=== PATIENT | male | born 1950 | race Caucasian/White ===

== ENCOUNTER 2018-10-16 22:54 | Inpatient (IN) | payer BC, MEDICARE ==
[~2018-10-16 22:54] MED LIST: ISOVUE-370 76%-LOCM 1 ML ONE
[2018-10-16 23:10] LABS: #Monocytes 1.8 thou/uL (0.11-0.59); #Neutrophils 13.5 thou/uL (1.40-6.50); %Basophils 0.2 % (0.0-1.0); %Eosinophils 0.2 % (0.0-10.0); %Lymphocytes 6.3 % (21.0-51.0); %Monocytes 10.8 % (0.0-10.0); %Neutrophils 82.5 % (42.0-75.0); Hemoglobin 15.6 g/dL (14.0-18.0); Mean Corpuscular HGB CONC 31.7 g/dL (32.0-36.0); Mean Corpuscular Hemoglobin 30.8 pg (27.0-31.0); Mean Corpuscular Volume 97.3 fL (78.0-98.0); Mean Platelet Volume 8.4 fL (7.4-10.4); Platelet Count 212 thou/uL (130-400); RBC Distribution Width 12.3 % (11.5-14.5); Red Blood Cell (RBC) Count 5.07 mill/uL (4.70-6.10); White Blood Cell (WBC) Count 16.4 thou/uL (4.8-10.8)
[2018-10-16 23:36] LABS: CKMB 0.7 ng/mL (0-6.6)
--- NOTE | 2018-10-16 23:49 | RAD ---
ONE VIEW CHEST: 10/16/18 HISTORY: Difficulty walking around 3 this afternoon. Balance issues. Chest pain. COMPARISON: None. FINDINGS: Normal cardiac silhouette. Pulmonary vessels and hilum are normal. Right costophrenic angle is clear. Minimal blunting of the left costophrenic angle. There is obscuration of the left hemidiaphragm. Lef t lower lobe infiltrate cannot be excluded. No pneumothorax or osseous abnormalities. IMPRESSION: Left lower lobe infiltrate. POS: [facility]
[2018-10-17 00:09] LABS: Troponin I Less than 0.010 ng/mL (< 0.028)
[2018-10-17 00:13] LABS: Albumin 3.7 g/dL (3.4-4.8)
[2018-10-17 00:14] LABS: Chloride 108 mmol/L (98-107); Potassium 3.8 mmol/L (3.5-5.1); Sodium 138 mmol/L (136-145)
[2018-10-17 00:15] LABS: Globulin 3.3 g/dL (2.4-3.5); Glucose 118 mg/dL (80-115)
[2018-10-17 00:16] LABS: Carbon Dioxide 22 mmol/L (23-31)
[2018-10-17 00:17] LABS: Anion Gap 12 mmol/L (10-20); Bilirubin, Total 0.8 mg/dL (0.2-1.2)
[2018-10-17 00:18] LABS: Alkaline Phosphatase 115 U/L (40-150); Calc. Creatinine Clearance 0 mL/min (70-130); Estimated GFR-MDRD 77
[2018-10-17 00:19] LABS: BUN (Urea Nitrogen) 16 mg/dL (8.4-25.7)
[2018-10-17 00:20] LABS: AST (SGOT) 20 U/L (5-34)
[2018-10-17 00:21] LABS: ALT (SGPT) 28 U/L (8-55); CK (CPK) 42 U/L (30-200)
[2018-10-17 01:26] LABS: Bilirubin Negative (Negative); Blood, Urine Trace (Negative); Clarity CLEAR (Clear); Glucose, Urine (Dipstick) Negative (Negative); Leukocyte Moderate (Negative); Nitrite Negative (Negative); Protein, Urine (Dipstick) Trace mg/dL (Neg-Trace); Urobilinogen 0.2 mg/dL (0.2-1.0); pH, Urine 5.5 (5.0-9.0)
[2018-10-17 01:28] LABS: Bacteria/HPF None Seen HPF (None Seen); Pathc Cast-AUWi Flag 1.59 (0-2.49); Squamous Epithelial None Seen HPF (0-3)
[2018-10-17 01:37] LABS: Yeast-AUWi Flag 31.9 (0-25.0)
[2018-10-17 01:38] LABS: Specific Gravity, Urine Greater than 1.060 (1.002-1.036)
[2018-10-17 01:55] LABS: Crystals/HPF 1+ CA OXALATE HPF (Negative); Hyaline Casts/LPF NONE SEEN LPF (0-3 Hyaline); RBC/HPF 0-3 HPF (0-3); Yeast-All Forms None Seen HPF (None Seen)
[2018-10-17] MEDS ORDERED: Ondansetron ODT 4 MG TAB PO PRN (02:02)
[2018-10-17] MEDS ORDERED: Acetaminophen 325 MG TAB PO PRN (02:02)
[2018-10-17] MEDS ORDERED: Ondansetron PF 4 MG/2 ML Vial IVP PRN (02:02)
[2018-10-17 02:17] LABS: #Lymphocytes 1.4 thou/uL (1.20-3.40); #Monocytes 1.4 thou/uL (0.11-0.59); #Neutrophils 10.2 thou/uL (1.40-6.50); %Basophils 0.2 % (0.0-1.0); %Eosinophils 0.4 % (0.0-10.0); %Monocytes 10.4 % (0.0-10.0); %Neutrophils 78.1 % (42.0-75.0); Hemoglobin 14.6 g/dL (14.0-18.0); Mean Corpuscular HGB CONC 33.3 g/dL (32.0-36.0); Mean Corpuscular Hemoglobin 32.2 pg (27.0-31.0); Mean Corpuscular Volume 96.6 fL (78.0-98.0); Mean Platelet Volume 8.2 fL (7.4-10.4); Platelet Count 184 thou/uL (130-400); RBC Distribution Width 12.3 % (11.5-14.5); Red Blood Cell (RBC) Count 4.54 mill/uL (4.70-6.10); White Blood Cell (WBC) Count 13.1 thou/uL (4.8-10.8)
[2018-10-17 02:34] LABS: Troponin I Less than 0.010 ng/mL (< 0.028)
[2018-10-17 02:45] LABS: Anion Gap 15 mmol/L (10-20); BUN (Urea Nitrogen) 14 mg/dL (8.4-25.7); Calc. Creatinine Clearance 0 mL/min (70-130); Calcium 8.9 mg/dL (7.8-10.44); Carbon Dioxide 20 mmol/L (23-31); Chloride 108 mmol/L (98-107); Estimated GFR-MDRD 83; Glucose 134 mg/dL (80-115); Potassium 3.8 mmol/L (3.5-5.1); Sodium 139 mmol/L (136-145)
--- NOTE | 2018-10-17 03:03 | HP ---
CHIEF COMPLAINT: Left-sided weakness. HISTORY OF PRESENT ILLNESS: This is a 68-year-old male with past medical history of CVA in 2009 with no residual deficits, presented with left-sided weakness which started around 1500 hours. Per the p atient, he was at home in the afternoon, he started noticing that he was having left-sided weakness w hich progressively got worse; therefore, it prompted the patient to come to the emergency room to be evaluated. The patient states that he has experienced some weakness which is very similar to this in the past and during that time, patient was diagnosed with stroke. Patient states that he is mostly experiencing difficulty with ambulation and it progressively got worse that he was falling and having difficulty getting back up due to the left-sided weakness. Per patient, he has also been having inc reasing frequency and urgency with urination. At this point, patient denies any fever, chills, nause a, vomiting, abdominal pain, chest pain, palpitations, hematuria, hematochezia, melena, but endorses increasing frequency with urination and left-sided weakness. REVIEW OF SYSTEMS: Positive for increased urination and left-sided weakness, otherwise as documented in HPI. All other systems were reviewed and are negative. PAST MEDICAL HISTORY: CVA in 2009. FAMILY HISTORY: Reviewed and noncontributory to this visit. PAST SURGICAL HISTORY: Patient had oral surgery in the past. PSYCHIATRIC HISTORY: No previous psychiatric history. SOCIAL HISTORY: Patient states that he drinks one beer per month. Denies any illicit drug use. Den ies any smoking history. ALLERGIES: No known drug allergies. MEDICATIONS: Patient takes Aggrenox b.i.d. and patient takes Lipitor 40 mg. Patient takes fish oil 1000. Patient takes vitamin B complex. PHYSICAL EXAMINATION: VITAL SIGNS: Blood pressure is 137/73, pulse of 117, respiratory rate of 18, O2 sat of 96% on room a ir. GENERAL: Patient is awake, alert, oriented x3, not in acute distress. Patient is lying in bed comfo rtably, able to speak to me in full sentences. HEENT: Normocephalic, atraumatic. Pupils are equally round and reactive to light. Extraocular move ments are intact. No scleral icterus. No conjunctival pallor. Mucous membranes are moist. NECK: There is no JVD. Neck has full range of motion, supple. No tracheal deviation. Trachea is m idline. LUNGS: Patient does have some crackles in the left lower base, otherwise patient has clear to auscul tation bilaterally at the anterior lung jack. Patient has symmetric chest rise with inspiration an d expirations. CARDIOVASCULAR: Patient has positive S1, S2 tachycardic. No rubs, no gallops, no murmurs appreciate d. ABDOMEN: Soft, nontender, nondistended. Positive bowel sounds in all quadrants. No ecchymosis, no peritoneal signs. EXTREMITIES: Patient has 5/5 upper extremity strength, good pulses bilaterally and good sensation at the upper extremity and patient has 5/5 lower extremity strength, good sensation at the extremity bi laterally and good pulses at the dorsalis pedis bilaterally. NEUROLOGIC: Cranial nerves II-XII grossly intact. No neurologic deficits noted. SKIN: Warm, dry and intact. No rashes noted. DIAGNOSTIC DATA: EKG shows sinus tachycardia with nonspecific ST abnormalities. Patient's rate is 1 14. LABORATORY DATA: WBC 16.4, hemoglobin is 15.6, hematocrit is 49.3, MCV is 97.3, RDW is 12.3, platele t count is 212. Sodium is 138, potassium is 3.8, chloride is 108, carbon dioxide of 22, anion gap of 12, BUN is 16, creatinine is 0.96, GFR 77, glucose 118. Lipase is 27. Troponin is less than 0.010. Creatine kinase 42, alkaline phosphatase 115, AST is 20, ALT is . Urinalysis shows moderate l eukoesterase and negative for nitrite. IMAGIN. CT of the head preliminary read is negative. 2. Chest x-ray shows a second x-ray shows left lower lobe infiltrate. ASSESSMENT AND PLAN: 1. This is a 68-year-old male being admitted for left-sided weakness, likely due to transient ischem ic attack. At this point, we will rule out cerebrovascular accident. Patient's CT scan of the head has been negative so far. We are awaiting CT of the [place] angio with contrast and we will follow up on MRI and echo. We will consult Neurology. We will give the patient aspirin and atorvas tatin at this time. We will follow up on morning labs. 2. Sepsis secondary to urinary tract infection. At this point, we have given the patient Rocephin. Urinalysis is positive for leukocyte esterase. We will continue patient on gentle hydration and con tinue antibiotics. 3. Aspiration pneumonia. Patient does have a left lower lobe infiltrate. At this point, we will st art the patient on antibiotics. We are going to continue antibiotics for the patient. We will gloria nue IV fluids and we will monitor the patient closely. 4. History of cerebrovascular accident. At this point, patient does not seem to have any residual d eficits. We will continue patient on aspirin and atorvastatin. We will monitor the patient closely. 5. Deep venous thrombosis and gastrointestinal prophylaxis. This case has been dictated by Dr. Ramon Yusuf on patient, Gladys Pathak.
[2018-10-17] MEDS: Sodium Chloride 0.9% 1,000 ML IV SCH ×2 (03:58→16:12)
[2018-10-17] MEDS: Piperacillin/Tazobactam 3.375 GM in Sodium Chloride 0.9% 100 ML IVPB SCH ×4 (03:59→20:06)
[2018-10-17 05:00] VITALS: BMI 23.2
[2018-10-17 05:09] LABS: Troponin I Less than 0.010 ng/mL (< 0.028)
[2018-10-17 05:28] LABS: Folate (Folic Acid) 14.7 ng/mL (7.0-31.4)
--- NOTE | 2018-10-17 07:42 | CT ---
NONCONTRAST HEAD CT: HISTORY: Sudden onset left leg weakness since 1500 hours. COMPARISON: None. FINDINGS: Calvarium is intact. Adequate aeration of the sinuses and mastoid air cells. No parenchymal hemorrhage. No extraaxial hematoma. No midline shift. Basilar cisterns are patent. Age appropriate atrophy. Cortical whiteside-white matter differentiation is preserved, with the exception of the right occipital parietal region where there is evidence of remote insult. Confluent white ma tter hypodensities due to chronic small-vessel ischemic changes are noted. There is evidence of dany te lacunar infarcts involving the left lentiform nucleus as well as remote lacunar infarcts involving the left chavez radiata and left subinsular white matter. IMPRESSION: No acute intracranial process. Results of the study discussed with Dr. Avila 10/17/2018 at 12:29 a.m. CODE JOSE POS: [facility]
--- NOTE | 2018-10-17 08:06 | CT ---
CT ANGIOGRAM OF THE HEAD CT ANGIOGRAM OF THE HEAD: HISTORY: Acute onset left-sided weakness starting at 1500 hours today. Difficulty ambulating. COMPARISON: None. FINDINGS: Postcontrast head CT demonstrates preservation of cortical whiteside-white matter differentiation with the exception of the right occipital lobe. No pathologic enhancement of the brain parenchyma. Bilateral ocular lenses are appropriately located. Both globes are intact. Retrobulbar fat is prese rved. Symmetric attenuation of the optic nerves and ocular rectus muscles. Limited evaluation of th e anterior oral cavity due to dental amalgam artifact. Based on the sagittal images, midline fatty r aphae of the tongue is preserved. Epiglottis has a normal caliber. Preepiglottic fat is preserved. There is no prevertebral soft tissue swelling. Symmetric attenuation of the parotid and submandibular glands. Unremarkable thyroid gland. Symmetri c attenuation of the sternocleidomastoid muscles. No evidence of lymphadenopathy by size criteria. Cervical spine vertebral body height is maintained. No fracture. There are varying degrees of centr al canal stenosis and neural foraminal narrowing on the basis of degenerative change. Evaluation is limited by technique. No acute abnormality in the lung apices. Upper mediastinum is unremarkable. CT ANGIOGRAM OF THE NECK: Visualized aortic arch, subclavian artery are unremarkable. Bilateral cervical vertebral arteries are patent throughout their course of the neck. Right vertebra l artery is dominant. RIGHT CAROTID: The origin of the right carotid artery has appropriate enhancement and luminal diameter. Minimal ath erosclerosis of the right carotid bifurcation. There is mild stenosis of the right carotid bifurcati on. No evidence of high-grade stenosis based upon NASCET criteria. LEFT CAROTID: The left carotid artery origin has appropriate enhancement and luminal diameter. There is no signifi cant stenosis based upon NASCET criteria. Throughout the left carotid artery. CT ANGIOGRAM OF THE HEAD: Distal cervical and intracranial internal carotid arteries have appropriate enhancement and luminal d iameter. There is atherosclerotic disease without significant stenosis in bilateral cavernous segmen ts as well as paraclinoid segments. ANTERIOR CIRCULATION: There is symmetric enhancement and luminal diameter of the A1 and M1 segments. Proximal A2 segments and proximal MCA branches are symmetric. POSTERIOR CIRCULATION: Both PICA artery origins are unremarkable. Both vertebral arteries supply a normal-caliber basilar a rtery. The left and right P1 segments have symmetric enhancement and luminal diameter. IMPRESSION: 1. No evidence of significant stenosis of the cervical carotid arteries based upon NASCET criteria. 2. No evidence of significant stenosis or aneurysm at the level of the [place]. Results of the study discussed with Dr. Avila 10/17/2018 at 12:49 a.m. CODE JOSE POS: [facility]
[2018-10-17] MEDS ORDERED: Prevnar 13-Val Conj/PF 0.5 ML SYRINGE IM ONE (09:00)
[2018-10-17] MEDS: Famotidine/PF 20 mg/2ml Vial SLOW IVP SCH ×2 (09:19→20:06)
[2018-10-17] MEDS: Enoxaparin Sodium 40 MG/0.4 ML SYRINGE SC SCH (09:19)
[2018-10-17] MEDS: Famotidine 20 MG TAB PO SCH ×2 (09:19→20:07)
--- NOTE | 2018-10-17 11:23 | MRI ---
MRI OF THE JOSE WITHOUT CONTRAST: INDICATION: History of left-sided weakness mostly in the leg that started yesterday with a history of a fall. COMPARISON: Prior noncontrast CT of the brain dated 10/17/2018 at 12:25 a.m. FINDINGS: No restricted diffusion is seen to suggest the presence of acute infarction. There is severe chronic small-vessel white matter ischemic change with chronic-appearing lacunar infarctions involving the l eft globus pallidus and bilateral thalami. There is mild generalized cerebral and cerebellar atrophy . The septum pellucidum and third ventricle are midline. There appropriate flow voids within the ma michelle intracranial vessels. There is mild mucosal thickening within the maxillary sinuses and ethmoid air cells. The skull appears within normal limits. No definite acute intracranial hemorrhage is not ed. IMPRESSION: 1. No acute intracranial abnormality. 2. Severe chronic small vessel white matter ischemic change. POS: [facility]
[2018-10-17] MEDS ORDERED: Aggrenox 200-25mg CAP PO SCH (14:00)
--- NOTE | 2018-10-17 14:58 | PDOC.PN ---
- Subjective Encounter Start Date: 10/17/18 Encounter Start Time: 14:45 Subjective: nsg notes rev, quin ovn, no new c/o, overall feels better. and dtr and -: granddtr visiting at bedside. no SOB/ some hoarseness and occ dry cough -: no CP - Objective Resuscitation Status: Resuscitation Status FULL:Full Resuscitation Vital Signs & Weight: Vital Signs (12 hours) Temp Pulse Pulse Pulse Resp BP BP 10/17/18 12:00 98.7 F 100 20 10/17/18 10:55 106 H 117/71 10/17/18 10:00 103 H 99 122/67 130/70 10/17/18 08:45 98.7 F 99 18 10/17/18 03:05 99.3 F 109 H 18 BP Pulse Ox 10/17/18 12:00 117/71 96 10/17/18 10:55 10/17/18 10:00 10/17/18 08:45 101/60 93 L 10/17/18 03:05 111/74 96 Weight Weight 171 lb 7 oz I&O: 10/16/18 10/17/18 10/18/18 06:59 06:59 06:59 Intake Total 400 200 Output Total 100 Balance 300 200 Result Diagrams: 10/17/18 02:07 10/17/18 02:07 Phys Exam - Physical Examination Constitutional: NAD lying in hospital bed HEENT: PERRLA Respiratory: no wheezing, no rales, no rhonchi, clear to auscultation bilateral no conversational dyspnea Cardiovascular: RRR, no significant murmur, no rub Gastrointestinal: soft, positive bowel sounds Musculoskeletal: no edema Neurological: moves all 4 limbs Psychiatric: normal affect Dx/Plan - Plan * L sided weakness w/o evidence of new stroke * supportive mgmt with PT/ OT/ ST * continue home atorvastatin, aggrenox - d/w pt and his family * * LLL pna with sepsis * sepsis is improving * continue with abx pending cx * * concern for UTI on adm, pending Ucx as well * d/w pt and family if negative UCx, will de-escalate empiric abx from IV to PO , monitor for several hrs and d/c home * * diet: as per speech * activity: as wil - PT + OT + ST * dvt ppx Review of Systems - Medications/Allergies Allergies/Adverse Reactions: Allergies Allergy/AdvReac Type Severity Reaction Status Date / Time No Known Drug Allergies Allergy Verified 10/17/18 02:30 Medications: Current Medications Acetaminophen (Tylenol) 650 mg PO Q4H PRN PRN Reason: Headache/Fever/Mild Pain (1-3) Atorvastatin Calcium (Lipitor) 40 mg PO HS [facility] Dipyridamole/Aspirin (Aggrenox) 1 cap PO BID [facility] Dipyridamole/Aspirin (Aggrenox) 1 cap PO NOW [facility] Stop: 10/17/18 15:00 Last Admin: 10/17/18 14:06 Dose: 1 cap Enoxaparin Sodium (Lovenox) 40 mg SC 0900 [facility] Last Admin: 10/17/18 09:19 Dose: 40 mg Famotidine (Pepcid) 20 mg SLOW IVP Q12HR [facility] Last Admin: 10/17/18 09:19 Dose: 20 mg Famotidine (Pepcid) 20 mg PO BID [facility] Last Admin: 10/17/18 09:19 Dose: Not Given Sodium Chloride (Normal Saline 0.9%) 1,000 mls @ 80 mls/hr IV .[id number] [facility] Last Admin: 10/17/18 03:58 Dose: 1,000 mls Piperacillin Sod/Tazobactam (Sod 3.375 gm/ Sodium Chloride) 100 mls @ 200 mls/ hr IVPB 0300,0900,1500,2100 [facility] Last Admin: 10/17/18 10:48 Dose: 100 mls Miscellaneous Medication (Pharmacy To Dose) 1 each IVPB ONE PRN PRN Reason: Pharmacy to dose Stop: 10/27/18 02:07 Ondansetron HCl (Zofran Odt) 4 mg PO Q6H PRN PRN Reason: Nausea/Vomiting Ondansetron HCl (Zofran) 4 mg IVP Q6H PRN PRN Reason: Nausea/Vomiting Sodium Chloride (Flush - Normal Saline) 10 ml IVF Q12HR PRN PRN Reason: Saline Flush Sodium Chloride (Flush - Normal Saline) 10 ml IVF PRN PRN PRN Reason: Saline Flush
[2018-10-17] MEDS: Aggrenox 200-25mg CAP PO SCH (20:20)
[2018-10-17] MEDS ORDERED: Atorvastatin Calcium 40 MG TAB PO SCH (21:00)
[2018-10-18] MEDS: Piperacillin/Tazobactam 3.375 GM in Sodium Chloride 0.9% 100 ML IVPB SCH ×2 (03:46→08:44)
[2018-10-18] MEDS: Sodium Chloride 0.9% 1,000 ML IV SCH ×2 (03:47→10:35)
[2018-10-18] MEDS: Famotidine/PF 20 mg/2ml Vial SLOW IVP SCH (08:43)
[2018-10-18] MEDS: Aggrenox 200-25mg CAP PO SCH (08:44)
[2018-10-18] MEDS: Famotidine 20 MG TAB PO SCH (08:44)
[2018-10-18] MEDS: Enoxaparin Sodium 40 MG/0.4 ML SYRINGE SC SCH (08:44)
[2018-10-18 11:44] VITALS: BP 119/80; TEMP 98.3
[2018-10-18 12:44] LABS: #Basophils 0.1 thou/uL (0.0-0.2); #Lymphocytes 1.4 thou/uL (1.20-3.40); #Monocytes 0.9 thou/uL (0.11-0.59); #Neutrophils 8.6 thou/uL (1.40-6.50); %Basophils 0.5 % (0.0-1.0); %Eosinophils 0.3 % (0.0-10.0); %Lymphocytes 12.7 % (21.0-51.0); %Monocytes 7.9 % (0.0-10.0); %Neutrophils 78.6 % (42.0-75.0); Hemoglobin 12.9 g/dL (14.0-18.0); Mean Corpuscular HGB CONC 32.6 g/dL (32.0-36.0); Mean Corpuscular Hemoglobin 31.5 pg (27.0-31.0); Mean Corpuscular Volume 96.4 fL (78.0-98.0); Mean Platelet Volume 7.6 fL (7.4-10.4); Platelet Count 206 thou/uL (130-400); RBC Distribution Width 12.1 % (11.5-14.5); Red Blood Cell (RBC) Count 4.12 mill/uL (4.70-6.10); White Blood Cell (WBC) Count 10.9 thou/uL (4.8-10.8)
[2018-10-18 13:08] LABS: Anion Gap 12 mmol/L (10-20); BUN (Urea Nitrogen) 11 mg/dL (8.4-25.7); Calc. Creatinine Clearance 80 mL/min (70-130); Calcium 8.6 mg/dL (7.8-10.44); Carbon Dioxide 21 mmol/L (23-31); Chloride 112 mmol/L (98-107); Estimated GFR-MDRD 79; Glucose 98 mg/dL (80-115); Potassium 3.8 mmol/L (3.5-5.1); Sodium 141 mmol/L (136-145)
--- NOTE | 2018-10-18 17:42 | DIS ---
DATE OF ADMISSION: 10/17/2018 DATE OF DISCHARGE: 10/18/2018 DIAGNOSES AT THE TIME OF DISCHARGE: 1. Transient left-sided weakness without evidence of new cerebrovascular accident. 2. Left lower lobe pneumonia. 3. History of previous cerebrovascular accident in 2009. HOSPITAL COURSE: The patient is a 68-year-old male with past medical history positive for CVA in 2009 with no residual deficits, who presented with left-sided weakness. He was seen in the em ergency room for evaluation. Emergency room doctor's physical examination did not show any weakness. He was positive for some abnormality of his gait. The patient got admitted to the hospital after h e had a negative CT scan of the brain. It was felt that maybe he had TIAs. Also during this emergen cy room evaluation, he had chest x-ray done which was negative and CT angiogram was done and [place] angiogram, all of them were normal, did not show any acute abnormalities, only old previous stroke findings, so the patient got admitted to the hospital. MRI of the brain was done, which showe d no acute intracranial abnormality and there was severe chronic small vessel white matter ischemic c hange. The patient did not see any neurologist since everything was resolved and it was suggestive o f some ischemic in nature, but not final CVA. Chest x-ray showed a left lower lobe infiltrate and he was started on IV antibiotic. He was on Zosyn IV piggyback every 6 hours but clinically, he did not have any symptoms suggestive of pneumonia. He is doing well. His blood pressure is 119/80, respiratory rate is 18, pulse is 95, temperature is 98 .3, and O2 saturation is from 90-94. He is not in any distress. He was seen and examined before his discharge. DISCHARGE DISPOSITION: Home with his . MEDICATIONS AT THE TIME OF DISCHARGE: Augmentin 875 mg twice a day, atorvastatin 40 mg once a day, A ggrenox 1 capsule twice a day. He is going to follow up with his primary care physician in 1 week an d they are planning to move to [facility] [place] and move his neurologist care to ar [facility] neurologist they had in [place], who moved out recently. The time spent on this discharge is less than 30 minutes.
== END 2018-10-18 15:20 | disposition home or self-care (01) | DRG 871 ==
LOC: ERS 22:54 → 2SE 10-17 00:29 → OBSVTOIN 10-17 00:29 → T4-A 10-17 15:41
PROVIDERS: ADMIT Internal Medicine; ATTEND Internal Medicine
DX: A41.81 Sepsis due to Enterococcus (principal); J69.0 Pneumonitis due to inhalation of food and vomit; N39.0 Urinary tract infection, site not specified; G45.9 Transient cerebral ischemic attack, unspecified; G81.94 Hemiplegia, unspecified affecting left nondominant side; Z86.73 Personal history of transient ischemic attack (TIA), and cerebral infarction without residual deficits
CPT/HCPCS: 36415; 70450; 70496; 70498; 70551; 71045; 80048; 80053; 81003; 81015; 82553; 82607; 82746; 83690; 84484; 85025; 87077; 87086; 87186; 90471; 90670; 93005; 93306; 96365; 96366; G0009; G8978-GP-CJ; G8979-GP-CJ; G8980-GP-CJ; G8987-GO-CJ; G8988-GO-CI; G8996-GN-CK; G8997-GN-CJ; J1650; J1956; J2543; J7050; S0028

== ENCOUNTER 2018-12-15 19:41 | Inpatient (IN) | payer BC, MEDICARE ==
[2018-12-15 20:14] LABS: #Eosinphils 0.1 thou/uL (0.0-0.7); #Lymphocytes 1.7 thou/uL (1.20-3.40); #Neutrophils 7.4 thou/uL (1.40-6.50); %Basophils 0.4 % (0.0-1.0); %Lymphocytes 16.1 % (21.0-51.0); %Monocytes 9.9 % (0.0-10.0); %Neutrophils 72.5 % (42.0-75.0); Hemoglobin 15.6 g/dL (14.0-18.0); Mean Corpuscular HGB CONC 31.9 g/dL (32.0-36.0); Mean Corpuscular Hemoglobin 31.3 pg (27.0-31.0); Mean Corpuscular Volume 98.2 fL (78.0-98.0); Mean Platelet Volume 7.7 fL (7.4-10.4); Platelet Count 224 thou/uL (130-400); RBC Distribution Width 12.2 % (11.5-14.5); Red Blood Cell (RBC) Count 4.99 mill/uL (4.70-6.10); White Blood Cell (WBC) Count 10.2 thou/uL (4.8-10.8)
--- NOTE | 2018-12-15 20:14 | CT ---
CT HEAD WITHOUT CONTRAST: 12/15/2018 HISTORY: Slurred speech. Stroke protocol. COMPARISON: 10/17/2018 TECHNIQUE: Axial CT imaging at 5 mm intervals, from the vertex through the skull base, without contrast. FINDINGS: The imaged paranasal sinuses and mastoid air cells are well aerated. There is no displaced calvarial fracture. There is no intracranial hemorrhage, midline shift, mass effect, or ventricular enlargement. There i s extensive prominent periventricular, deep, and subcortical white matter hypodensity, evidence of se heather small vessel disease, stable. There is also evidence of numerous prior lacunar infarctions invo lving the basal ganglia and thalami bilaterally. IMPRESSION: Severe small vessel disease. Numerous prior lacunar infarctions. No intracranial hemorrhage. Results called to Dr. Houser at 8:06 p.m. on 12/15/2018. CODE CR POS: [facility]
[2018-12-15 20:18] LABS: PTT 28.8 SEC (22.9-36.1)
--- NOTE | 2018-12-15 20:21 | RAD ---
FRONTAL RADIOGRAPH CHEST: 12/15/2018 HISTORY: Slurred speech. COMPARISON: 10/16/2018 FINDINGS: Old fracture of right clavicle noted. Lungs appear clear. Heart and mediastinal contours appear unr emarkable. IMPRESSION: No acute findings. POS: [facility]
[2018-12-15 20:24] LABS: ALT (SGPT) 31 U/L (8-55); AST (SGOT) 22 U/L (5-34); Albumin 4.2 g/dL (3.4-4.8); Alkaline Phosphatase 162 U/L (40-150); Anion Gap 14 mmol/L (10-20); BUN (Urea Nitrogen) 17 mg/dL (8.4-25.7); Bilirubin, Total 0.6 mg/dL (0.2-1.2); Calc. Creatinine Clearance 0 mL/min (70-130); Calcium 9.6 mg/dL (7.8-10.44); Carbon Dioxide 26 mmol/L (23-31); Chloride 105 mmol/L (98-107); Estimated GFR-MDRD 50; Glucose 113 mg/dL (80-115); Potassium 4.4 mmol/L (3.5-5.1); Protein, Total 7.2 g/dL (5.8-8.1); Sodium 141 mmol/L (136-145)
[2018-12-15] MEDS ORDERED: Aspirin Chewable 81 MG TAB ONE (21:15)
[2018-12-15] MEDS ORDERED: Aspirin 325 MG TAB ONE (21:15)
[2018-12-15] MEDS ORDERED: Acetaminophen 325 MG TAB PO PRN (22:00)
[2018-12-15] MEDS ORDERED: Ondansetron PF 4 MG/2 ML Vial IVP PRN (22:00)
[2018-12-15] MEDS ORDERED: hydrALAZINE 20 MG/ML VIAL SLOW IVP PRN (22:01)
--- NOTE | 2018-12-15 23:54 | HP ---
PRIMARY CARE DOCTOR: Out [facility] physician. TIME OF EVALUATION: 09:55 p.m. CHIEF COMPLAINT: Left-sided weakness. HISTORY OF PRESENT ILLNESS: This is a 68-year-old male patient with a past medical history of stroke. The patient came to the hospital after having left-sided weakness and slurred speech. The symptoms started probably since around 2:00 p.m. The patient reported to the the symptoms around 5:00 p.m. There were no clear triggers. The patient reported that he feels about the same. No improvement of the symptoms. This also was associated with unsteady gait. The symptoms started suddenly. REVIEW OF SYSTEMS: CONSTITUTIONAL: No fever, chills, generalized weakness. RESPIRATORY: No cough, sputum production, shortness of breath. CARDIOVASCULAR: No chest pain, palpitation. GASTROINTESTINAL: No nausea, no vomiting, diarrhea, or abdominal pain. VOICE NETWORK ADMINISTRATOR: The patient has right-sided weakness, slurred speech. Unsteady gait. No headache, feeling lightheaded. GENITOURINARY: No burning on urination. EXTREMITIES: No leg swelling. All other systems were reviewed and negative except for the findings mentioned above. PAST MEDICAL HISTORY: Positive for CVA in 2009. PAST SURGICAL HISTORY: Oral surgery. PSYCH HISTORY: No previous psych history. SOCIAL HISTORY: The patient drinks socially once a month. No drugs. No smoking history. Lives at home with the spouse. FAMILY HISTORY: Father has a history of a stroke. KNOWN ALLERGIES: No known drug allergies reported. MEDICATIONS: 1. . 2. Aspirin. 3. Lipitor. 4. Fish oil. 5. Vitamin B complex. PHYSICAL EXAMINATION: VITAL SIGNS: On presentation, blood pressure 139/88 that was rechecked by myself, was 123/78, heart rate 91, respiratory rate was 18, temperature 97.5, pain 0/10, oxygen saturation 94 on room air. GENERAL APPEARANCE: The patient is alert, oriented, mild distress due to new symptoms. HEAD, EYES: Normal conjunctiva. Moist oral mucosa. Anicteric. No JVD. RESPIRATORY: Bilateral air entry. No rales or wheezes. Symmetric expansion. CARDIOVASCULAR: Normal rate, regular rhythm. No murmurs, no gallops. No edema. ABDOMEN: Soft, normal bowel sounds. MUSCULOSKELETAL: Baseline range of motion and strength. No tenderness. SKIN: Warm, intact. No pallor. No rash. No redness. Peripheral pulses are present. Capillary refill seems to be intact. NEUROLOGIC: The patient has left side weakness. There is 3/5 in both upper and lower extremities. The patient reported that he is weaker than before and the symptoms have not improved. The patient is still having some dysarthria. PSYCHIATRIC: The patient is in good mood. No anxiety. Optimal judgment. IMAGING: EKG was reviewed. The patient has a sinus rhythm with a rate of 82, SC 146, QRS 96, QT corrected 427. Brain CT was reviewed, showed severe small vessel disease compatible with his lacunar infarction. No intracranial hemorrhage. Chest x-ray, the patient has no acute findings. Last echo from the patient was reviewed and the patient had at that time tachycardia, EF around 60% to 65%, normal right ventricle size and function. Left atrium is normal in size. Normal right atrial size. Trace mitral regurgitation is present normal aortic valve, mild tricuspid regurgitation. LABORATORY DATA: Labs were reviewed. White count 10.2, hemoglobin 15.6, MCV 98.2, platelet count 224. Coagulation; PT is 13, INR 1.0, PTT 28.8. Chemistry: Sodium 141, potassium 4.4, chloride 105, carbon dioxide 26, anion gap 14, BUN 17, creatinine 1.4. On previous admissions, the creatinine was 0.9, GFR 50, glucose 113, and repeat one was 111, calcium 9.6. LFTs were normal. Troponin was negative. B-type natriuretic peptide as normal. ASSESSMENT AND PLAN: The patient presented to the hospital with following medical problems: 1. Possible stroke. The patient has left-sided weakness with dysarthria with unsteady gait. The symptoms are reportedly the same since 2:00 p.m., so we will do a stroke workup, consult Neurology, follow recommendations, will monitor on tele. 2. Acute kidney injury. The patient has a creatinine of 1.4. Recent increase of more than 0.3 mg/dL from previous admissions. We will hydrate gently. 3. Deep venous thrombosis prophylaxis. Job ID: [id number]
[2018-12-16 03:47] LABS: #Eosinphils 0.1 thou/uL (0.0-0.7); #Lymphocytes 1.6 thou/uL (1.20-3.40); #Neutrophils 4.5 thou/uL (1.40-6.50); %Basophils 0.4 % (0.0-1.0); %Eosinophils 1.5 % (0.0-10.0); %Lymphocytes 21.9 % (21.0-51.0); %Monocytes 13.4 % (0.0-10.0); %Neutrophils 62.8 % (42.0-75.0); Hemoglobin 14.3 g/dL (14.0-18.0); Mean Corpuscular HGB CONC 33.4 g/dL (32.0-36.0); Mean Corpuscular Hemoglobin 32.5 pg (27.0-31.0); Mean Corpuscular Volume 97.4 fL (78.0-98.0); Mean Platelet Volume 7.7 fL (7.4-10.4); Platelet Count 195 thou/uL (130-400); RBC Distribution Width 12.1 % (11.5-14.5); Red Blood Cell (RBC) Count 4.39 mill/uL (4.70-6.10); White Blood Cell (WBC) Count 7.1 thou/uL (4.8-10.8)
[2018-12-16 04:05] LABS: Anion Gap 11 mmol/L (10-20); BUN (Urea Nitrogen) 15 mg/dL (8.4-25.7); Calc. Creatinine Clearance 0 mL/min (70-130); Calcium 8.8 mg/dL (7.8-10.44); Carbon Dioxide 24 mmol/L (23-31); Cardiac Risk 3.1 (Less than 4.5); Chloride 109 mmol/L (98-107); Cholesterol 113 mg/dl (< 200 Desired); Estimated GFR-MDRD 90; Glucose 91 mg/dL (80-115); HDL Cholesterol 37 mg/dL (>60 Neg Risk); LDL Cholesterol, Calculated 65 mg/dL; Potassium 3.6 mmol/L (3.5-5.1); Sodium 140 mmol/L (136-145); Triglycerides 53 mg/dL (Less than 150)
[2018-12-16] MEDS ORDERED: Diabetic Tussin 200 MG/10 ML UDCUP PO PRN (07:40)
[2018-12-16] MEDS ORDERED: Senokot S 8.6-50 MG TAB PO PRN (07:40)
[2018-12-16] MEDS ORDERED: Bisacodyl 10 MG SUPP PR PRN (07:40)
[2018-12-16] MEDS ORDERED: Sodium Chloride 0.65% Nasal 44 ML BOT EA NARE PRN (07:40)
[2018-12-16] MEDS ORDERED: Artificial Tears 18 DROP/0.9 ML EA EYE PRN (07:40)
[2018-12-16] MEDS ORDERED: Ondansetron ODT 4 MG TAB PO PRN (07:40)
[2018-12-16] MEDS ORDERED: Cepastat Lozenges 1 LOZ PO PRN (07:40)
[2018-12-16] MEDS ORDERED: Eucerin (Mineral Oil/Petrolatum,White) 30 gm Jar TOP PRN (07:40)
[2018-12-16] MEDS ORDERED: Loratadine 10 MG TAB PO PRN (07:40)
[2018-12-16] MEDS ORDERED: Loperamide HCl 2 MG CAP PO PRN (07:40)
[2018-12-16] MEDS ORDERED: hydrALAZINE 20 MG/ML VIAL SLOW IVP PRN (07:43)
[2018-12-16] MEDS ORDERED: Enoxaparin Sodium 40 MG/0.4 ML SYRINGE SC SCH (09:00)
--- NOTE | 2018-12-16 09:16 | ULT ---
CAROTID ULTRASOUND WITH BRADEN SCALE AND DOPPLER DUPLEX COLOR FLOW IMAGING SPECTRAL ANALYSIS PERFORMED: CLINICAL INDICATION: Stroke FINDINGS: There is scattered mild intimal thickening/plaque formation atherosclerotic calcification of the samuels tid arteries. PEAK SYSTOLIC VELOCITY (CM/S): Right CCA 105 Left CCA 76 Right ICA 70 Left ICA 66 There is antegrade flow within the visualized bilateral vertebral arteries. IMPRESSION: 1. No hemodynamically significant stenosis of the right internal carotid artery. 2. No hemodynamically significant stenosis of the left internal carotid artery. POS: [facility]
--- NOTE | 2018-12-16 09:53 | MRI ---
MRI BRAIN WITHOUT CONTRAST: INDICATION: Slurred speech. Stroke. COMPARISON: Correlation is made to CT head 12/15/2018 which reveals severe chronic ischemic white matter change. Comparison is also made to MRI brain dated 10/17/2018 which also showed severe chronic ischemic sandoval e without acute process. FINDINGS: On today's exam, there is cortical atrophy. Severe chronic ischemic white matter change ag ain noted in both cerebral hemispheres. There is cortical encephalomalacia I the right occipital reg ion consistent with old infarct which is stable. On diffusion weighted sequence today, there is evidence of an acute lacunar infarct in the left periv entricular white matter. This small focus of restricted diffusion measures approximately 8-10 mm. No other restricted diffusion. No cortical infarct seen. IMPRESSION: 1. Acute lacunar infarct in the left periventricular white matter is noted. 2. Severe chronic ischemic white matter changes are again seen with cortical atrophy and old right o ccipital infarct. These findings are stable. POS: [facility]
--- NOTE | 2018-12-16 11:20 | PDOC.PN ---
- Subjective Encounter Start Date: 12/16/18 Encounter Start Time: 09:50 -: old records requested/rev pt has slurred speech, his weakness has improvement, bedside - Objective Resuscitation Status - Order Detail: 12/15/18 22:00 Resuscitation Status Routine Resuscitation Status: FULL: Full Resuscitation MAR Reviewed: Yes Vital Signs & Weight: Vital Signs (12 hours) BP BP 12/16/18 09:55 111/78 106/70 Result Diagrams: 12/16/18 03:26 12/16/18 03:26 Additional Labs: Accuchecks 12/15/18 20:00 POC Glucose 111 H Radiology Reviewed by me: Yes (MRI, carotid US, echo reviewed) EKG Reviewed by me: Yes (nsr) Phys Exam - Physical Examination Constitutional: NAD HEENT: PERRLA, moist MMs, sclera anicteric Neck: no JVD, supple Respiratory: no wheezing, no rales, no rhonchi Cardiovascular: RRR, no significant murmur, no rub Gastrointestinal: soft, non-tender, no distention, positive bowel sounds Musculoskeletal: no edema, pulses present dysarthria, left side weakness but improving Lymphatic: no nodes Psychiatric: normal affect, A&O x 3 Skin: no rash, normal turgor Dx/Plan (1) Acute CVA (cerebrovascular accident) Code(s): I63.9 - CEREBRAL INFARCTION, UNSPECIFIED Status: Acute Comment: left periventricular white mattor infarct (2) Hypertension Code(s): I10 - ESSENTIAL (PRIMARY) HYPERTENSION Status: Chronic (3) Dyslipidemia Code(s): E78.5 - HYPERLIPIDEMIA, UNSPECIFIED Status: Chronic (4) Acute kidney injury Code(s): N17.9 - ACUTE KIDNEY FAILURE, UNSPECIFIED Status: Resolved - Plan cont current plan of care, plan discussed w/ family, PT/OT, bilingual social worker * MRI, carotid US done * echo will be done * neuro consulted * stroke team eval * may need rehab * neuro check * continue aspirin, aggrenox and lipitor * continue IVF for low BP * discussed with . Review of Systems - Review of Systems Constitutional: negative: fever, chills, sweats, weakness, malaise, other Eyes: negative: Pain, Vision Change, Conjunctivae Inflammation, Eyelid Inflammation, Redness, Other ENT: negative: Ear Pain, Ear Discharge, Nose Pain, Nose Discharge, Nose Congestion, Mouth Pain, Mouth Swelling, Throat Pain, Throat Swelling, Other Respiratory: negative: Cough, Dry, Shortness of Breath, Hemoptysis, SOB with Excertion, Pleuritic Pain, Sputum, Wheezing Cardiovascular: negative: chest pain, palpitations, orthopnea, paroxysmal nocturnal dyspnea, edema, light headedness, other Gastrointestinal: negative: Nausea, Vomiting, Abdominal Pain, Diarrhea, Constipation, Melena, Hematochezia, Other Genitourinary: negative: Dysuria, Frequency, Incontinence, Hematuria, Retention , Other Musculoskeletal: negative: Neck Pain, Shoulder Pain, Arm Pain, Back Pain, Hand Pain, Leg Pain, Foot Pain, Other Skin: negative: Rash, Lesions, Martin, Bruising, Other Neurological: Weakness, Change in Speech. negative: Numbness, Incoordination, Confusion, Seizures, Other - Medications/Allergies Allergies/Adverse Reactions: Allergies Allergy/AdvReac Type Severity Reaction Status Date / Time No Known Drug Allergies Allergy Verified 10/17/18 02:30 Medications: Current Medications Acetaminophen (Tylenol) 650 mg PO Q4H PRN PRN Reason: Headache/Fever/Mild Pain (1-3) Artificial Tears (Tears Naturale) 2 drop EA EYE PRN PRN PRN Reason: Dry Eyes Aspirin (Aspirin) 325 mg PO DAILY [facility] Aspirin (Aspirin) 300 mg [place] DAILY [facility] Atorvastatin Calcium (Lipitor) 40 mg PO HS [facility] Bisacodyl (Dulcolax) 10 mg [place] DAILYPRN PRN PRN Reason: Constipation Dipyridamole/Aspirin (Aggrenox) 1 cap PO BID [facility] Enoxaparin Sodium (Lovenox) 40 mg SC 0900 [facility] Famotidine (Pepcid) 20 mg PO BID [facility] Famotidine (Pepcid) 20 mg SLOW IVP BID [facility] Guaifenesin (Robitussin Sf) 200 mg PO Q4H PRN PRN Reason: Cough Hydralazine HCl (Apresoline) 10 mg SLOW IVP Q4H PRN PRN Reason: SBP Greater Than 180 Sodium Chloride (Normal Saline 0.9%) 1,000 mls @ 75 mls/hr IV .[id number] KATERINE Loperamide HCl (Imodium) 2 mg PO PRN PRN PRN Reason: Diarrhea/Loose Stools Loratadine (Claritin) 10 mg PO DAILYPRN PRN PRN Reason: Sinus Symptoms Mineral Oil/White Petrolatum (Eucerin Cream) 0 gm TOP BIDPRN PRN PRN Reason: Dry Skin Ondansetron HCl (Zofran) 4 mg IVP Q6H PRN PRN Reason: Nausea/Vomiting Ondansetron HCl (Zofran Odt) 4 mg PO Q6H PRN PRN Reason: Nausea/Vomiting Senna/Docusate Sodium (Senokot S) 2 tab PO BID PRN PRN Reason: Constipation Sodium Chloride (Flush - Normal Saline) 10 ml IVF PRN PRN PRN Reason: Saline Flush Sodium Chloride ([place] Nasal [place] 0.65%) 0 ml EA NARE QIDPRN PRN PRN Reason: Nasal Congestion Throat Lozenges (Cepastat Lozenges) 1 smita PO Q2H PRN PRN Reason: Sore Throat
[2018-12-16] MEDS: Aspirin 325 MG TAB PO SCH (11:47)
[2018-12-16] MEDS: Famotidine 20 MG TAB PO SCH (11:49)
[2018-12-16] MEDS: Aggrenox 200-25mg CAP PO SCH (11:49)
[2018-12-16] MEDS ORDERED: Famotidine 20 MG TAB ONE ×2 (12:19→22:10)
[2018-12-16] MEDS ORDERED: Aspirin 325 MG TAB ONE (12:19)
[2018-12-16] MEDS: Aspirin 300 MG Suppository PR SCH (12:44)
[2018-12-16] MEDS: Enoxaparin Sodium 40 MG/0.4 ML SYRINGE SC SCH (12:45)
[2018-12-16] MEDS: Famotidine/PF 20 mg/2ml Vial SLOW IVP SCH (12:45)
[2018-12-16] MEDS: Sodium Chloride 0.9% 1,000 ML IV SCH (16:41)
[2018-12-17] MEDS: Famotidine 20 MG TAB PO SCH ×3 (00:36→21:22)
[2018-12-17] MEDS: Aggrenox 200-25mg CAP PO SCH ×3 (00:36→21:22)
[2018-12-17] MEDS: Atorvastatin Calcium 40 MG TAB PO SCH ×2 (00:36→21:22)
[2018-12-17] MEDS: Famotidine/PF 20 mg/2ml Vial SLOW IVP SCH ×3 (00:37→21:22)
[2018-12-17 01:13] VITALS: BMI 20.9
[2018-12-17] MEDS: Sodium Chloride 0.9% 1,000 ML IV SCH (01:46)
[2018-12-17 05:14] LABS: Cardiac Risk 3.6 (Less than 4.5)
[2018-12-17 05:24] LABS: Syphilis Antibody Nonreactive (Nonreactive); Syphilis Antibody Index 0.07 S/CO (<1.00 Non-Reactive)
[2018-12-17] MEDS: Aspirin 300 MG Suppository PR SCH (08:30)
[2018-12-17] MEDS ORDERED: Fish Oil 1,000 MG CAP PO SCH (09:00)
[2018-12-17] MEDS: Fish Oil 1,000 MG CAP PO SCH ×2 (09:08→21:22)
[2018-12-17] MEDS: Aspirin 325 MG TAB PO SCH (09:08)
[2018-12-17] MEDS: Enoxaparin Sodium 40 MG/0.4 ML SYRINGE SC SCH (09:08)
--- NOTE | 2018-12-17 12:42 | PDOC.PN ---
- Subjective Encounter Start Date: 12/17/18 Encounter Start Time: 10:00 -: old records requested/rev Patient seen and examined. No new complaints. No overnight events pt has slurred speech - Objective Resuscitation Status - Order Detail: 12/15/18 22:00 Resuscitation Status Routine Resuscitation Status: FULL: Full Resuscitation MAR Reviewed: Yes Vital Signs & Weight: Vital Signs (12 hours) Temp Pulse Resp BP Pulse Ox 12/17/18 11:38 97.9 F 100 16 115/78 96 12/17/18 08:00 98.7 F 99 16 126/63 95 12/17/18 04:00 98.5 F 102 H 18 142/80 H 95 Weight Weight 163 lb 6.4 oz I&O: 12/16/18 12/17/18 12/18/18 06:59 06:59 06:59 Output Total 175 Balance -175 Result Diagrams: 12/16/18 03:26 12/16/18 03:26 Radiology Reviewed by me: Yes (echo report noted) EKG Reviewed by me: Yes (nsr) Phys Exam - Physical Examination Constitutional: NAD HEENT: PERRLA, moist MMs, sclera anicteric Neck: no JVD, supple Respiratory: no wheezing, no rales, no rhonchi Cardiovascular: RRR, no significant murmur, no rub Gastrointestinal: soft, non-tender, no distention, positive bowel sounds Musculoskeletal: no edema, pulses present dysarthria Lymphatic: no nodes Psychiatric: normal affect, A&O x 3 Skin: no rash, normal turgor Dx/Plan (1) Acute CVA (cerebrovascular accident) Code(s): I63.9 - CEREBRAL INFARCTION, UNSPECIFIED Status: Acute Comment: left periventricular white mattor infarct (2) Hypertension Code(s): I10 - ESSENTIAL (PRIMARY) HYPERTENSION Status: Chronic (3) Dyslipidemia Code(s): E78.5 - HYPERLIPIDEMIA, UNSPECIFIED Status: Chronic (4) Acute kidney injury Code(s): N17.9 - ACUTE KIDNEY FAILURE, UNSPECIFIED Status: Resolved - Plan cont current plan of care, PT/OT, manager social media, speech therapy * medication reviewed as below * symptomatic treatment * will need rehab * continue stroke team evals. * neurology will see him today Review of Systems - Review of Systems ENT: negative: Ear Pain, Ear Discharge, Nose Pain, Nose Discharge, Nose Congestion, Mouth Pain, Mouth Swelling, Throat Pain, Throat Swelling, Other Respiratory: negative: Cough, Dry, Shortness of Breath, Hemoptysis, SOB with Excertion, Pleuritic Pain, Sputum, Wheezing Cardiovascular: negative: chest pain, palpitations, orthopnea, paroxysmal nocturnal dyspnea, edema, light headedness, other Gastrointestinal: negative: Nausea, Vomiting, Abdominal Pain, Diarrhea, Constipation, Melena, Hematochezia, Other Genitourinary: negative: Dysuria, Frequency, Incontinence, Hematuria, Retention , Other Musculoskeletal: negative: Neck Pain, Shoulder Pain, Arm Pain, Back Pain, Hand Pain, Leg Pain, Foot Pain, Other Skin: negative: Rash, Lesions, Martin, Bruising, Other Neurological: Change in Speech. negative: Weakness, Numbness, Incoordination, Confusion, Seizures, Other - Medications/Allergies Allergies/Adverse Reactions: Allergies Allergy/AdvReac Type Severity Reaction Status Date / Time shellfish derived Allergy Verified 12/17/18 00:48 Medications: Current Medications Acetaminophen (Tylenol) 650 mg PO Q4H PRN PRN Reason: Headache/Fever/Mild Pain (1-3) Artificial Tears (Tears Naturale) 2 drop EA EYE PRN PRN PRN Reason: Dry Eyes Aspirin (Aspirin) 325 mg PO DAILY [facility] Last Admin: 12/17/18 09:08 Dose: 325 mg Atorvastatin Calcium (Lipitor) 40 mg PO HS [facility] Last Admin: 12/17/18 00:36 Dose: Not Given Bisacodyl (Dulcolax) 10 mg [place] DAILYPRN PRN PRN Reason: Constipation Dipyridamole/Aspirin (Aggrenox) 1 cap PO BID [facility] Last Admin: 12/17/18 09:08 Dose: 1 cap Enoxaparin Sodium (Lovenox) 40 mg SC 0900 [facility] Last Admin: 12/17/18 09:08 Dose: 40 mg Famotidine (Pepcid) 20 mg PO BID [facility] Last Admin: 12/17/18 09:08 Dose: 20 mg Famotidine (Pepcid) 20 mg SLOW IVP BID [facility] Last Admin: 12/17/18 08:30 Dose: Not Given Fish Oil (Fish Oil) 1,000 mg PO BID [facility] Last Admin: 12/17/18 09:08 Dose: 1,000 mg Guaifenesin (Robitussin Sf) 200 mg PO Q4H PRN PRN Reason: Cough Hydralazine HCl (Apresoline) 10 mg SLOW IVP Q4H PRN PRN Reason: SBP Greater Than 180 Loperamide HCl (Imodium) 2 mg PO PRN PRN PRN Reason: Diarrhea/Loose Stools Loratadine (Claritin) 10 mg PO DAILYPRN PRN PRN Reason: Sinus Symptoms Mineral Oil/White Petrolatum (Eucerin Cream) 0 gm TOP BIDPRN PRN PRN Reason: Dry Skin Multivitamins/Zinc (Stress 600 With Zinc) 1 tab PO HS [facility] Ondansetron HCl (Zofran) 4 mg IVP Q6H PRN PRN Reason: Nausea/Vomiting Ondansetron HCl (Zofran Odt) 4 mg PO Q6H PRN PRN Reason: Nausea/Vomiting Senna/Docusate Sodium (Senokot S) 2 tab PO BID PRN PRN Reason: Constipation Sodium Chloride (Flush - Normal Saline) 10 ml IVF PRN PRN PRN Reason: Saline Flush Sodium Chloride ([place] Nasal [place] 0.65%) 0 ml EA NARE QIDPRN PRN PRN Reason: Nasal Congestion Throat Lozenges (Cepastat Lozenges) 1 smita PO Q2H PRN PRN Reason: Sore Throat
[2018-12-17] MEDS ORDERED: Non-Formulary Item 1 EACH (Vitamin B Complex [B Complex] 1 TAB) PO SCH (21:00)
[2018-12-17] MEDS: Stress 600 With Zinc 1 TAB PO SCH (21:26)
[2018-12-18] MEDS: Enoxaparin Sodium 40 MG/0.4 ML SYRINGE SC SCH (09:38)
[2018-12-18] MEDS: Aggrenox 200-25mg CAP PO SCH ×2 (09:38→21:19)
[2018-12-18] MEDS: Aspirin 325 MG TAB PO SCH (09:38)
[2018-12-18] MEDS: Fish Oil 1,000 MG CAP PO SCH ×2 (09:38→21:20)
[2018-12-18] MEDS: Famotidine 20 MG TAB PO SCH ×2 (09:38→21:19)
[2018-12-18] MEDS: Famotidine/PF 20 mg/2ml Vial SLOW IVP SCH ×2 (09:39→21:20)
--- NOTE | 2018-12-18 11:49 | PDOC.PN ---
- Subjective Encounter Start Date: 12/18/18 Encounter Start Time: 07:10 -: old records requested/rev - Objective Resuscitation Status - Order Detail: 12/15/18 22:00 Resuscitation Status Routine Resuscitation Status: FULL: Full Resuscitation MAR Reviewed: Yes Vital Signs & Weight: Vital Signs (12 hours) Temp Pulse Pulse Resp BP BP Pulse Ox 12/18/18 11:35 97.8 F 104 H 16 120/82 95 12/18/18 10:10 71 110/76 12/18/18 08:00 96 12/18/18 07:43 97.8 F 84 16 117/76 96 12/18/18 04:00 98.7 F 100 19 120/74 93 L 12/18/18 00:00 98.6 F 89 19 101/73 96 Weight Weight 163 lb 6.4 oz I&O: 12/17/18 12/18/18 12/19/18 06:59 06:59 06:59 Intake Total 120 120 Output Total 175 Balance -175 120 120 Result Diagrams: 12/16/18 03:26 12/16/18 03:26 EKG Reviewed by me: Yes (nsr) Phys Exam - Physical Examination Constitutional: NAD HEENT: PERRLA, moist MMs, sclera anicteric Neck: no JVD, supple Respiratory: no wheezing, no rales, no rhonchi Cardiovascular: RRR, no significant murmur, no rub Gastrointestinal: soft, non-tender, no distention, positive bowel sounds Musculoskeletal: no edema, pulses present Neurological: non-focal, normal sensation dysarthria Lymphatic: no nodes Psychiatric: normal affect, A&O x 3 Skin: no rash, normal turgor Dx/Plan (1) Acute CVA (cerebrovascular accident) Code(s): I63.9 - CEREBRAL INFARCTION, UNSPECIFIED Status: Acute Comment: left periventricular white mattor infarct (2) Hypertension Code(s): I10 - ESSENTIAL (PRIMARY) HYPERTENSION Status: Chronic (3) Dyslipidemia Code(s): E78.5 - HYPERLIPIDEMIA, UNSPECIFIED Status: Chronic (4) Acute kidney injury Code(s): N17.9 - ACUTE KIDNEY FAILURE, UNSPECIFIED Status: Resolved - Plan cont current plan of care, plan discussed w/ family * spoke with and updated plan of care * await rehab * continue stroke team evaluation * his BP is normal without any BP meds * will monitor on tele * medication reviewed as below * symptomatic treatment. Review of Systems - Review of Systems ENT: negative: Ear Pain, Ear Discharge, Nose Pain, Nose Discharge, Nose Congestion, Mouth Pain, Mouth Swelling, Throat Pain, Throat Swelling, Other Respiratory: negative: Cough, Dry, Shortness of Breath, Hemoptysis, SOB with Excertion, Pleuritic Pain, Sputum, Wheezing Cardiovascular: negative: chest pain, palpitations, orthopnea, paroxysmal nocturnal dyspnea, edema, light headedness, other Gastrointestinal: negative: Nausea, Vomiting, Abdominal Pain, Diarrhea, Constipation, Melena, Hematochezia, Other Genitourinary: negative: Dysuria, Frequency, Incontinence, Hematuria, Retention , Other Musculoskeletal: negative: Neck Pain, Shoulder Pain, Arm Pain, Back Pain, Hand Pain, Leg Pain, Foot Pain, Other Neurological: Change in Speech. negative: Weakness, Numbness, Incoordination, Confusion, Seizures, Other - Medications/Allergies Allergies/Adverse Reactions: Allergies Allergy/AdvReac Type Severity Reaction Status Date / Time shellfish derived Allergy Verified 12/17/18 00:48 Medications: Current Medications Acetaminophen (Tylenol) 650 mg PO Q4H PRN PRN Reason: Headache/Fever/Mild Pain (1-3) Artificial Tears (Tears Naturale) 2 drop EA EYE PRN PRN PRN Reason: Dry Eyes Aspirin (Aspirin) 325 mg PO DAILY [facility] Last Admin: 12/18/18 09:38 Dose: 325 mg Atorvastatin Calcium (Lipitor) 40 mg PO HS [facility] Last Admin: 12/17/18 21:22 Dose: 40 mg Bisacodyl (Dulcolax) 10 mg [place] DAILYPRN PRN PRN Reason: Constipation Dipyridamole/Aspirin (Aggrenox) 1 cap PO BID [facility] Last Admin: 12/18/18 09:38 Dose: 1 cap Enoxaparin Sodium (Lovenox) 40 mg SC 0900 [facility] Last Admin: 12/18/18 09:38 Dose: 40 mg Famotidine (Pepcid) 20 mg PO BID [facility] Last Admin: 12/18/18 09:38 Dose: 20 mg Famotidine (Pepcid) 20 mg SLOW IVP BID [facility] Last Admin: 12/18/18 09:39 Dose: Not Given Fish Oil (Fish Oil) 1,000 mg PO BID [facility] Last Admin: 12/18/18 09:38 Dose: 1,000 mg Guaifenesin (Robitussin Sf) 200 mg PO Q4H PRN PRN Reason: Cough Hydralazine HCl (Apresoline) 10 mg SLOW IVP Q4H PRN PRN Reason: SBP Greater Than 180 Loperamide HCl (Imodium) 2 mg PO PRN PRN PRN Reason: Diarrhea/Loose Stools Loratadine (Claritin) 10 mg PO DAILYPRN PRN PRN Reason: Sinus Symptoms Mineral Oil/White Petrolatum (Eucerin Cream) 0 gm TOP BIDPRN PRN PRN Reason: Dry Skin Multivitamins/Zinc (Stress 600 With Zinc) 1 tab PO [facility] Last Admin: 12/17/18 21:26 Dose: Not Given Ondansetron HCl (Zofran) 4 mg IVP Q6H PRN PRN Reason: Nausea/Vomiting Ondansetron HCl (Zofran Odt) 4 mg PO Q6H PRN PRN Reason: Nausea/Vomiting Senna/Docusate Sodium (Senokot S) 2 tab PO BID PRN PRN Reason: Constipation Sodium Chloride (Flush - Normal Saline) 10 ml IVF PRN PRN PRN Reason: Saline Flush Sodium Chloride ([place] Nasal [place] 0.65%) 0 ml EA NARE QIDPRN PRN PRN Reason: Nasal Congestion Throat Lozenges (Cepastat Lozenges) 1 smita PO Q2H PRN PRN Reason: Sore Throat
[2018-12-18] MEDS: Atorvastatin Calcium 40 MG TAB PO SCH (21:19)
[2018-12-18] MEDS: Stress 600 With Zinc 1 TAB PO SCH (21:20)
--- NOTE | 2018-12-18 22:19 | CON ---
DATE OF CONSULTATION: 12/18/2018 NEUROLOGY CONSULTATION CONSULTING PHYSICIAN: Hospitalist Services. IMPRESSION: 1. Recurrent stroke of small-vessel origin on the left, resulting in right-sided weakness and increased dysarthria. 2. Prior lacunar stroke with left-sided dysmetria. 3. Normal carotid ultrasound and echocardiogram. PLAN: 1. Continue aspirin and Aggrenox. 2. Continue Lipitor. 3. Rehab transfer. HISTORY OF PRESENT ILLNESS: Mr. Graham is a 68-year-old gentleman with a past history of stroke. He was followed by neurologist in [facility]. He presented with acute onset of right-sided weakness. He was brought in for further evaluation. His MRI of the brain showed severe small-vessel ischemic changes, as well as new small area of infarction involving the left parietal lobe. His carotid ultrasound was cleared. His echocardiogram showed ejection fraction of 60% to 65%. His EKG showed normal sinus rhythm. His lipid ratio was 3.1. He had been compliant with his medication. PAST HISTORY: Stroke, hyperlipidemia. ALLERGIES: NONE. SOCIAL HISTORY: No tobacco use. FAMILY HISTORY: Unremarkable. REVIEW OF SYSTEMS: 10-system review of systems is otherwise negative. PHYSICAL EXAMINATION: GENERAL: He is a well-nourished elderly gentleman, sitting in bed, in no acute distress. VITAL SIGNS: Stable with pulse rate around 100. HEENT: Pupils equal and reactive. Conjunctiva clear. Oropharynx clear to exam. Cranium, normocephalic and atraumatic. NECK: Supple. No lymphadenopathy noted. EXTREMITIES: No cyanosis or edema. NEUROLOGIC: He is alert and cooperative. Speech was moderately dysarthric. It was fluent in content. Cranial nerve exam showed flattening of the right nasolabial fold. His tongue protruded to the center. Motor exam showed antigravity strength on both sides. His rapid alternating movements were diminished bilaterally. His cerebellar testing was more notable for dysmetria on the left than anything on the right. Sensation was intact to light touch. Plantar responses were mute. He reportedly was able to walk a short distance with a walker. SUMMARY: A 68-year-old gentleman with recurrent small vessel ischemic disease despite maximal medical therapy. He will be transferred to Rehab for further care. I will be happy to follow up with him in the office. Job ID: [id number]
[2018-12-19] MEDS: Aspirin 325 MG TAB PO SCH (09:41)
[2018-12-19] MEDS: Aggrenox 200-25mg CAP PO SCH ×2 (09:41→22:06)
[2018-12-19] MEDS: Enoxaparin Sodium 40 MG/0.4 ML SYRINGE SC SCH (09:41)
[2018-12-19] MEDS: Fish Oil 1,000 MG CAP PO SCH ×2 (09:42→22:05)
[2018-12-19] MEDS: Famotidine 20 MG TAB PO SCH ×2 (09:42→22:06)
[2018-12-19] MEDS: Famotidine/PF 20 mg/2ml Vial SLOW IVP SCH ×2 (09:43→22:06)
--- NOTE | 2018-12-19 10:53 | PDOC.PN ---
- Subjective Encounter Start Date: 12/19/18 Encounter Start Time: 07:30 Patient seen and examined. No new complaints. No overnight events - Objective Resuscitation Status - Order Detail: 12/15/18 22:00 Resuscitation Status Routine Resuscitation Status: FULL: Full Resuscitation MAR Reviewed: Yes Vital Signs & Weight: Vital Signs (12 hours) Temp Pulse Resp BP Pulse Ox 12/19/18 08:00 94 L 12/19/18 07:49 98.1 F 88 14 117/75 94 L 12/19/18 04:00 98.5 F 86 18 120/75 94 L 12/19/18 00:00 98.5 F 100 16 111/72 97 Weight Weight 163 lb 6.4 oz I&O: 12/18/18 12/19/18 12/20/18 06:59 06:59 06:59 Intake Total 120 990 120 Balance 120 990 120 Result Diagrams: 12/16/18 03:26 12/16/18 03:26 EKG Reviewed by me: Yes (nsr) Phys Exam - Physical Examination Constitutional: NAD HEENT: PERRLA, moist MMs, sclera anicteric Neck: no JVD, supple Respiratory: no wheezing, no rales, no rhonchi Cardiovascular: RRR, no significant murmur, no rub Gastrointestinal: soft, non-tender, no distention, positive bowel sounds Musculoskeletal: no edema, pulses present Neurological: non-focal, normal sensation Lymphatic: no nodes Psychiatric: normal affect, A&O x 3 Skin: no rash, normal turgor Dx/Plan (1) Acute CVA (cerebrovascular accident) Code(s): I63.9 - CEREBRAL INFARCTION, UNSPECIFIED Status: Acute Comment: left periventricular white mattor infarct (2) Hypertension Code(s): I10 - ESSENTIAL (PRIMARY) HYPERTENSION Status: Chronic (3) Dyslipidemia Code(s): E78.5 - HYPERLIPIDEMIA, UNSPECIFIED Status: Chronic (4) Acute kidney injury Code(s): N17.9 - ACUTE KIDNEY FAILURE, UNSPECIFIED Status: Resolved - Plan cont current plan of care, PT/OT, pediatric social worker * medication reviewed as below * symptomatic treatment * await placement to rehab. Review of Systems - Review of Systems ENT: negative: Ear Pain, Ear Discharge, Nose Pain, Nose Discharge, Nose Congestion, Mouth Pain, Mouth Swelling, Throat Pain, Throat Swelling, Other Respiratory: negative: Cough, Dry, Shortness of Breath, Hemoptysis, SOB with Excertion, Pleuritic Pain, Sputum, Wheezing Cardiovascular: negative: chest pain, palpitations, orthopnea, paroxysmal nocturnal dyspnea, edema, light headedness, other Gastrointestinal: negative: Nausea, Vomiting, Abdominal Pain, Diarrhea, Constipation, Melena, Hematochezia, Other Genitourinary: negative: Dysuria, Frequency, Incontinence, Hematuria, Retention , Other Musculoskeletal: negative: Neck Pain, Shoulder Pain, Arm Pain, Back Pain, Hand Pain, Leg Pain, Foot Pain, Other Neurological: Change in Speech. negative: Weakness, Numbness, Incoordination, Confusion, Seizures, Other - Medications/Allergies Allergies/Adverse Reactions: Allergies Allergy/AdvReac Type Severity Reaction Status Date / Time shellfish derived Allergy Verified 12/17/18 00:48 Medications: Current Medications Acetaminophen (Tylenol) 650 mg PO Q4H PRN PRN Reason: Headache/Fever/Mild Pain (1-3) Artificial Tears (Tears Naturale) 2 drop EA EYE PRN PRN PRN Reason: Dry Eyes Aspirin (Aspirin) 325 mg PO DAILY [facility] Last Admin: 12/19/18 09:41 Dose: 325 mg Atorvastatin Calcium (Lipitor) 40 mg PO HS [facility] Last Admin: 12/18/18 21:19 Dose: 40 mg Bisacodyl (Dulcolax) 10 mg [place] DAILYPRN PRN PRN Reason: Constipation Dipyridamole/Aspirin (Aggrenox) 1 cap PO BID [facility] Last Admin: 12/19/18 09:41 Dose: 1 cap Enoxaparin Sodium (Lovenox) 40 mg SC 0900 [facility] Last Admin: 12/19/18 09:41 Dose: 40 mg Famotidine (Pepcid) 20 mg PO BID [facility] Last Admin: 12/19/18 09:42 Dose: 20 mg Famotidine (Pepcid) 20 mg SLOW IVP BID [facility] Last Admin: 12/19/18 09:43 Dose: Not Given Fish Oil (Fish Oil) 1,000 mg PO BID [facility] Last Admin: 12/19/18 09:42 Dose: 1,000 mg Guaifenesin (Robitussin Sf) 200 mg PO Q4H PRN PRN Reason: Cough Hydralazine HCl (Apresoline) 10 mg SLOW IVP Q4H PRN PRN Reason: SBP Greater Than 180 Loperamide HCl (Imodium) 2 mg PO PRN PRN PRN Reason: Diarrhea/Loose Stools Loratadine (Claritin) 10 mg PO DAILYPRN PRN PRN Reason: Sinus Symptoms Mineral Oil/White Petrolatum (Eucerin Cream) 0 gm TOP BIDPRN PRN PRN Reason: Dry Skin Multivitamins/Zinc (Stress 600 With Zinc) 1 tab PO [facility] Last Admin: 12/18/18 21:20 Dose: 1 tab Ondansetron HCl (Zofran) 4 mg IVP Q6H PRN PRN Reason: Nausea/Vomiting Ondansetron HCl (Zofran Odt) 4 mg PO Q6H PRN PRN Reason: Nausea/Vomiting Senna/Docusate Sodium (Senokot S) 2 tab PO BID PRN PRN Reason: Constipation Sodium Chloride (Flush - Normal Saline) 10 ml IVF PRN PRN PRN Reason: Saline Flush Sodium Chloride ([place] Nasal [place] 0.65%) 0 ml EA NARE QIDPRN PRN PRN Reason: Nasal Congestion Throat Lozenges (Cepastat Lozenges) 1 smita PO Q2H PRN PRN Reason: Sore Throat
[2018-12-19] MEDS: Stress 600 With Zinc 1 TAB PO SCH (22:06)
[2018-12-19] MEDS: Atorvastatin Calcium 40 MG TAB PO SCH (22:06)
[2018-12-20] MEDS: Aspirin 325 MG TAB PO SCH (09:35)
[2018-12-20] MEDS: Enoxaparin Sodium 40 MG/0.4 ML SYRINGE SC SCH (09:35)
[2018-12-20] MEDS: Aggrenox 200-25mg CAP PO SCH ×2 (09:35→20:24)
[2018-12-20] MEDS: Famotidine/PF 20 mg/2ml Vial SLOW IVP SCH ×2 (09:35→20:24)
[2018-12-20] MEDS: Fish Oil 1,000 MG CAP PO SCH ×2 (09:35→20:24)
[2018-12-20] MEDS: Famotidine 20 MG TAB PO SCH ×2 (09:35→20:24)
--- NOTE | 2018-12-20 10:34 | PDOC.PN ---
- Subjective Encounter Start Date: 12/20/18 Encounter Start Time: 07:00 Patient seen and examined. No new complaints. No overnight events his speech has no improvement, he is weak, still will need rehab - Objective Resuscitation Status - Order Detail: 12/15/18 22:00 Resuscitation Status Routine Resuscitation Status: FULL: Full Resuscitation MAR Reviewed: Yes Vital Signs & Weight: Vital Signs (12 hours) Temp Pulse Resp BP Pulse Ox 12/20/18 08:00 97.9 F 84 20 120/78 96 12/20/18 04:00 98.6 F 84 18 103/59 L 95 12/20/18 00:00 99.0 F 84 19 120/75 98 Weight Weight 163 lb 6.4 oz I&O: 12/19/18 12/20/18 12/21/18 06:59 06:59 06:59 Intake Total 990 360 150 Balance 990 360 150 Result Diagrams: 12/16/18 03:26 12/16/18 03:26 EKG Reviewed by me: Yes (nsr) Phys Exam - Physical Examination Constitutional: NAD HEENT: PERRLA, moist MMs, sclera anicteric Neck: no JVD, supple Respiratory: no wheezing, no rales, no rhonchi Cardiovascular: RRR, no significant murmur, no rub Gastrointestinal: soft, non-tender, no distention, positive bowel sounds Musculoskeletal: no edema, pulses present dysarthria,weakness improving Lymphatic: no nodes Psychiatric: normal affect, A&O x 3 Skin: no rash, normal turgor Dx/Plan (1) Acute CVA (cerebrovascular accident) Code(s): I63.9 - CEREBRAL INFARCTION, UNSPECIFIED Status: Acute Comment: left periventricular white mattor infarct (2) Hypertension Code(s): I10 - ESSENTIAL (PRIMARY) HYPERTENSION Status: Chronic (3) Dyslipidemia Code(s): E78.5 - HYPERLIPIDEMIA, UNSPECIFIED Status: Chronic (4) Acute kidney injury Code(s): N17.9 - ACUTE KIDNEY FAILURE, UNSPECIFIED Status: Resolved - Plan cont current plan of care, PT/OT, social media marketer, speech therapy, DVT proph w/ lovenox * continue current medical therapy * medication reviewed as below * symptomatic treatment * will need rehab placement * medically stable for now. Review of Systems - Review of Systems Constitutional: negative: fever, chills, sweats, weakness, malaise, other Eyes: negative: Pain, Vision Change, Conjunctivae Inflammation, Eyelid Inflammation, Redness, Other ENT: negative: Ear Pain, Ear Discharge, Nose Pain, Nose Discharge, Nose Congestion, Mouth Pain, Mouth Swelling, Throat Pain, Throat Swelling, Other Respiratory: negative: Cough, Dry, Shortness of Breath, Hemoptysis, SOB with Excertion, Pleuritic Pain, Sputum, Wheezing Cardiovascular: negative: chest pain, palpitations, orthopnea, paroxysmal nocturnal dyspnea, edema, light headedness, other Gastrointestinal: negative: Nausea, Vomiting, Abdominal Pain, Diarrhea, Constipation, Melena, Hematochezia, Other Genitourinary: negative: Dysuria, Frequency, Incontinence, Hematuria, Retention , Other Musculoskeletal: negative: Neck Pain, Shoulder Pain, Arm Pain, Back Pain, Hand Pain, Leg Pain, Foot Pain, Other Skin: negative: Rash, Lesions, Martin, Bruising, Other Neurological: Weakness, Change in Speech. negative: Numbness, Incoordination, Confusion, Seizures, Other - Medications/Allergies Allergies/Adverse Reactions: Allergies Allergy/AdvReac Type Severity Reaction Status Date / Time shellfish derived Allergy Verified 12/17/18 00:48 Medications: Current Medications Acetaminophen (Tylenol) 650 mg PO Q4H PRN PRN Reason: Headache/Fever/Mild Pain (1-3) Artificial Tears (Tears Naturale) 2 drop EA EYE PRN PRN PRN Reason: Dry Eyes Aspirin (Aspirin) 325 mg PO DAILY [facility] Last Admin: 12/20/18 09:35 Dose: 325 mg Atorvastatin Calcium (Lipitor) 40 mg PO HS [facility] Last Admin: 12/19/18 22:06 Dose: 40 mg Bisacodyl (Dulcolax) 10 mg [place] DAILYPRN PRN PRN Reason: Constipation Dipyridamole/Aspirin (Aggrenox) 1 cap PO BID [facility] Last Admin: 12/20/18 09:35 Dose: 1 cap Enoxaparin Sodium (Lovenox) 40 mg SC 0900 [facility] Last Admin: 12/20/18 09:35 Dose: 40 mg Famotidine (Pepcid) 20 mg PO BID [facility] Last Admin: 12/20/18 09:35 Dose: 20 mg Famotidine (Pepcid) 20 mg SLOW IVP BID [facility] Last Admin: 12/20/18 09:35 Dose: Not Given Fish Oil (Fish Oil) 1,000 mg PO BID [facility] Last Admin: 12/20/18 09:35 Dose: 1,000 mg Guaifenesin (Robitussin Sf) 200 mg PO Q4H PRN PRN Reason: Cough Hydralazine HCl (Apresoline) 10 mg SLOW IVP Q4H PRN PRN Reason: SBP Greater Than 180 Loperamide HCl (Imodium) 2 mg PO PRN PRN PRN Reason: Diarrhea/Loose Stools Loratadine (Claritin) 10 mg PO DAILYPRN PRN PRN Reason: Sinus Symptoms Mineral Oil/White Petrolatum (Eucerin Cream) 0 gm TOP BIDPRN PRN PRN Reason: Dry Skin Multivitamins/Zinc (Stress 600 With Zinc) 1 tab PO [facility] Last Admin: 12/19/18 22:06 Dose: 1 tab Ondansetron HCl (Zofran) 4 mg IVP Q6H PRN PRN Reason: Nausea/Vomiting Ondansetron HCl (Zofran Odt) 4 mg PO Q6H PRN PRN Reason: Nausea/Vomiting Senna/Docusate Sodium (Senokot S) 2 tab PO BID PRN PRN Reason: Constipation Sodium Chloride (Flush - Normal Saline) 10 ml IVF PRN PRN PRN Reason: Saline Flush Sodium Chloride ([place] Nasal [place] 0.65%) 0 ml EA NARE QIDPRN PRN PRN Reason: Nasal Congestion Throat Lozenges (Cepastat Lozenges) 1 smita PO Q2H PRN PRN Reason: Sore Throat
[2018-12-20] MEDS: Stress 600 With Zinc 1 TAB PO SCH (20:24)
[2018-12-20] MEDS: Atorvastatin Calcium 40 MG TAB PO SCH (20:24)
--- NOTE | 2018-12-21 00:06 | EKG ---
Test Reason : Blood Pressure : / mmHG Vent. Rate : 082 BPM Atrial Rate : 082 BPM P-R Int : 146 ms QRS Dur : 096 ms QT Int : 366 ms P-R-T Axes : 057 008 031 degrees QTc Int : 427 ms Poor data quality, interpretation may be adversely affected Normal sinus rhythm Otherwise normal ECG Confirmed by CYNDEE DE PAZ, CATINA ([id number]), map editor ELAINE TOMPKINS ([id number]) on 12/21/2018 12:05:58 AM Referred By: Confirmed By:CATINA COTTER MD
[2018-12-21 06:25] LABS: #Eosinphils 0.2 thou/uL (0.0-0.7); #Lymphocytes 1.4 thou/uL (1.20-3.40); #Monocytes 0.8 thou/uL (0.11-0.59); #Neutrophils 3.9 thou/uL (1.40-6.50); %Basophils 0.8 % (0.0-1.0); %Eosinophils 2.5 % (0.0-10.0); %Lymphocytes 22.7 % (21.0-51.0); %Monocytes 12.1 % (0.0-10.0); %Neutrophils 61.9 % (42.0-75.0); Hemoglobin 14.9 g/dL (14.0-18.0); Mean Corpuscular HGB CONC 33.4 g/dL (32.0-36.0); Mean Corpuscular Hemoglobin 32.4 pg (27.0-31.0); Mean Corpuscular Volume 96.9 fL (78.0-98.0); Mean Platelet Volume 7.5 fL (7.4-10.4); Platelet Count 231 thou/uL (130-400); RBC Distribution Width 11.8 % (11.5-14.5); Red Blood Cell (RBC) Count 4.62 mill/uL (4.70-6.10); White Blood Cell (WBC) Count 6.2 thou/uL (4.8-10.8)
[2018-12-21 06:45] LABS: Anion Gap 16 mmol/L (10-20); BUN (Urea Nitrogen) 14 mg/dL (8.4-25.7); Calc. Creatinine Clearance 83 mL/min (70-130); Calcium 9.3 mg/dL (7.8-10.44); Carbon Dioxide 22 mmol/L (23-31); Chloride 109 mmol/L (98-107); Estimated GFR-MDRD 87; Glucose 92 mg/dL (80-115); Potassium 3.7 mmol/L (3.5-5.1); Sodium 143 mmol/L (136-145)
[2018-12-21] MEDS: Famotidine 20 MG TAB PO SCH ×2 (09:15→20:57)
[2018-12-21] MEDS: Aggrenox 200-25mg CAP PO SCH ×2 (09:15→20:58)
[2018-12-21] MEDS: Fish Oil 1,000 MG CAP PO SCH ×2 (09:15→20:57)
[2018-12-21] MEDS: Aspirin 325 MG TAB PO SCH (09:15)
[2018-12-21] MEDS: Enoxaparin Sodium 40 MG/0.4 ML SYRINGE SC SCH (09:16)
[2018-12-21] MEDS: Famotidine/PF 20 mg/2ml Vial SLOW IVP SCH ×2 (09:16→20:58)
--- NOTE | 2018-12-21 11:30 | PDOC.PN ---
- Subjective Encounter Start Date: 12/21/18 Encounter Start Time: 07:00 Patient seen and examined. No new complaints. No overnight events - Objective Resuscitation Status - Order Detail: 12/15/18 22:00 Resuscitation Status Routine Resuscitation Status: FULL: Full Resuscitation MAR Reviewed: Yes Vital Signs & Weight: Vital Signs (12 hours) Temp Pulse Resp BP Pulse Ox 12/21/18 07:40 97.4 F L 79 16 121/77 96 12/21/18 04:00 98.4 F 89 18 118/86 96 12/20/18 23:36 98.3 F 86 18 108/71 97 Weight Weight 163 lb 6.4 oz I&O: 12/20/18 12/21/18 12/22/18 06:59 06:59 06:59 Intake Total 360 750 240 Balance 360 750 240 Result Diagrams: 12/21/18 05:46 12/21/18 05:46 EKG Reviewed by me: Yes (nsr) Phys Exam - Physical Examination Constitutional: NAD HEENT: PERRLA, moist MMs, sclera anicteric Neck: no JVD, supple Respiratory: no wheezing, no rales, no rhonchi Cardiovascular: RRR, no significant murmur, no rub Gastrointestinal: soft, non-tender, no distention, positive bowel sounds Musculoskeletal: no edema, pulses present dysarthria, weakness improving Lymphatic: no nodes Psychiatric: normal affect, A&O x 3 Skin: no rash, normal turgor Dx/Plan (1) Acute CVA (cerebrovascular accident) Code(s): I63.9 - CEREBRAL INFARCTION, UNSPECIFIED Status: Acute Comment: left periventricular white mattor infarct (2) Hypertension Code(s): I10 - ESSENTIAL (PRIMARY) HYPERTENSION Status: Chronic (3) Dyslipidemia Code(s): E78.5 - HYPERLIPIDEMIA, UNSPECIFIED Status: Chronic (4) Acute kidney injury Code(s): N17.9 - ACUTE KIDNEY FAILURE, UNSPECIFIED Status: Resolved - Plan cont current plan of care, PT/OT, social welfare clerk, DVT proph w/lovenox * pt is now medically stable * he is improving * he needs more rehab, await rehab placement * medication reviewed as below * symptomatic treatment. Review of Systems - Review of Systems ENT: negative: Ear Pain, Ear Discharge, Nose Pain, Nose Discharge, Nose Congestion, Mouth Pain, Mouth Swelling, Throat Pain, Throat Swelling, Other Respiratory: negative: Cough, Dry, Shortness of Breath, Hemoptysis, SOB with Excertion, Pleuritic Pain, Sputum, Wheezing Cardiovascular: negative: chest pain, palpitations, orthopnea, paroxysmal nocturnal dyspnea, edema, light headedness, other Gastrointestinal: negative: Nausea, Vomiting, Abdominal Pain, Diarrhea, Constipation, Melena, Hematochezia, Other Genitourinary: negative: Dysuria, Frequency, Incontinence, Hematuria, Retention , Other Musculoskeletal: negative: Neck Pain, Shoulder Pain, Arm Pain, Back Pain, Hand Pain, Leg Pain, Foot Pain, Other Neurological: Change in Speech. negative: Weakness, Numbness, Incoordination, Confusion, Seizures, Other - Medications/Allergies Allergies/Adverse Reactions: Allergies Allergy/AdvReac Type Severity Reaction Status Date / Time shellfish derived Allergy Verified 12/17/18 00:48 Medications: Current Medications Acetaminophen (Tylenol) 650 mg PO Q4H PRN PRN Reason: Headache/Fever/Mild Pain (1-3) Artificial Tears (Tears Naturale) 2 drop EA EYE PRN PRN PRN Reason: Dry Eyes Aspirin (Aspirin) 325 mg PO DAILY [facility] Last Admin: 12/21/18 09:15 Dose: 325 mg Atorvastatin Calcium (Lipitor) 40 mg PO HS [facility] Last Admin: 12/20/18 20:24 Dose: 40 mg Bisacodyl (Dulcolax) 10 mg [place] DAILYPRN PRN PRN Reason: Constipation Dipyridamole/Aspirin (Aggrenox) 1 cap PO BID [facility] Last Admin: 12/21/18 09:15 Dose: 1 cap Enoxaparin Sodium (Lovenox) 40 mg SC 0900 [facility] Last Admin: 12/21/18 09:16 Dose: 40 mg Famotidine (Pepcid) 20 mg PO BID [facility] Last Admin: 12/21/18 09:15 Dose: 20 mg Famotidine (Pepcid) 20 mg SLOW IVP BID [facility] Last Admin: 12/21/18 09:16 Dose: Not Given Fish Oil (Fish Oil) 1,000 mg PO BID [facility] Last Admin: 12/21/18 09:15 Dose: 1,000 mg Guaifenesin (Robitussin Sf) 200 mg PO Q4H PRN PRN Reason: Cough Hydralazine HCl (Apresoline) 10 mg SLOW IVP Q4H PRN PRN Reason: SBP Greater Than 180 Loperamide HCl (Imodium) 2 mg PO PRN PRN PRN Reason: Diarrhea/Loose Stools Loratadine (Claritin) 10 mg PO DAILYPRN PRN PRN Reason: Sinus Symptoms Mineral Oil/White Petrolatum (Eucerin Cream) 0 gm TOP BIDPRN PRN PRN Reason: Dry Skin Multivitamins/Zinc (Stress 600 With Zinc) 1 tab PO [facility] Last Admin: 12/20/18 20:24 Dose: 1 tab Ondansetron HCl (Zofran) 4 mg IVP Q6H PRN PRN Reason: Nausea/Vomiting Ondansetron HCl (Zofran Odt) 4 mg PO Q6H PRN PRN Reason: Nausea/Vomiting Senna/Docusate Sodium (Senokot S) 2 tab PO BID PRN PRN Reason: Constipation Sodium Chloride (Flush - Normal Saline) 10 ml IVF PRN PRN PRN Reason: Saline Flush Sodium Chloride ([place] Nasal [place] 0.65%) 0 ml EA NARE QIDPRN PRN PRN Reason: Nasal Congestion Throat Lozenges (Cepastat Lozenges) 1 smita PO Q2H PRN PRN Reason: Sore Throat
--- NOTE | 2018-12-21 20:09 | PDOC.EVN ---
Event Note - Event Note Event Note: Called by RN for 4 sec pause on telemetry - new for this patient. Reviewed orders - do not see any medications that can be responsible, echo reviewed and normal. Will place consult for cardiology in AM. If persistent, may need STAT consult overnight.
[2018-12-21] MEDS: Atorvastatin Calcium 40 MG TAB PO SCH (20:57)
[2018-12-21] MEDS: Stress 600 With Zinc 1 TAB PO SCH (21:04)
[2018-12-22] MEDS: Famotidine 20 MG TAB PO SCH ×2 (09:29→20:44)
[2018-12-22] MEDS: Aggrenox 200-25mg CAP PO SCH ×2 (09:29→20:43)
[2018-12-22] MEDS: Enoxaparin Sodium 40 MG/0.4 ML SYRINGE SC SCH (09:29)
[2018-12-22] MEDS: Fish Oil 1,000 MG CAP PO SCH ×2 (09:29→20:44)
[2018-12-22] MEDS: Aspirin 325 MG TAB PO SCH (09:29)
--- NOTE | 2018-12-22 11:08 | PDOC.PN ---
- Subjective Encounter Start Date: 12/22/18 Encounter Start Time: 07:00 pt had pause last night, cardiology consulted, pt is asymptomatic, await rehab placement - Objective Resuscitation Status - Order Detail: 12/15/18 22:00 Resuscitation Status Routine Resuscitation Status: FULL: Full Resuscitation MAR Reviewed: Yes Vital Signs & Weight: Vital Signs (12 hours) Temp Pulse Resp BP Pulse Ox 12/22/18 07:32 97.9 F 74 16 112/63 94 L 12/22/18 03:46 98.0 F 88 16 120/84 95 12/21/18 23:34 98.8 F 86 16 114/84 94 L Weight Weight 163 lb 6.4 oz I&O: 12/21/18 12/22/18 12/23/18 06:59 06:59 06:59 Intake Total 750 240 Balance 750 240 Result Diagrams: 12/21/18 05:46 12/21/18 05:46 EKG Reviewed by me: Yes (pause noted) Phys Exam - Physical Examination Constitutional: NAD HEENT: PERRLA, moist MMs, sclera anicteric Neck: no JVD, supple Respiratory: no wheezing, no rales, no rhonchi Cardiovascular: RRR, no significant murmur, no rub Gastrointestinal: soft, non-tender, no distention, positive bowel sounds Musculoskeletal: no edema, pulses present dysarthria, weakness Lymphatic: no nodes Psychiatric: normal affect, A&O x 3 Skin: no rash, normal turgor Dx/Plan (1) Acute CVA (cerebrovascular accident) Code(s): I63.9 - CEREBRAL INFARCTION, UNSPECIFIED Status: Acute Comment: left periventricular white mattor infarct (2) Hypertension Code(s): I10 - ESSENTIAL (PRIMARY) HYPERTENSION Status: Chronic (3) Dyslipidemia Code(s): E78.5 - HYPERLIPIDEMIA, UNSPECIFIED Status: Chronic (4) Acute kidney injury Code(s): N17.9 - ACUTE KIDNEY FAILURE, UNSPECIFIED Status: Resolved (5) Sinus pause Code(s): I45.5 - OTHER SPECIFIED HEART BLOCK Status: Acute - Plan cont current plan of care, PT/OT, social psychologist * await cardiology input regarding sinus pause * await rehab placement * medication reviewed as below * symptomatic treatment. Review of Systems - Review of Systems ENT: negative: Ear Pain, Ear Discharge, Nose Pain, Nose Discharge, Nose Congestion, Mouth Pain, Mouth Swelling, Throat Pain, Throat Swelling, Other Respiratory: negative: Cough, Dry, Shortness of Breath, Hemoptysis, SOB with Excertion, Pleuritic Pain, Sputum, Wheezing Cardiovascular: negative: chest pain, palpitations, orthopnea, paroxysmal nocturnal dyspnea, edema, light headedness, other Gastrointestinal: negative: Nausea, Vomiting, Abdominal Pain, Diarrhea, Constipation, Melena, Hematochezia, Other Genitourinary: negative: Dysuria, Frequency, Incontinence, Hematuria, Retention , Other Musculoskeletal: negative: Neck Pain, Shoulder Pain, Arm Pain, Back Pain, Hand Pain, Leg Pain, Foot Pain, Other - Medications/Allergies Allergies/Adverse Reactions: Allergies Allergy/AdvReac Type Severity Reaction Status Date / Time shellfish derived Allergy Verified 12/17/18 00:48 Medications: Current Medications Acetaminophen (Tylenol) 650 mg PO Q4H PRN PRN Reason: Headache/Fever/Mild Pain (1-3) Artificial Tears (Tears Naturale) 2 drop EA EYE PRN PRN PRN Reason: Dry Eyes Aspirin (Aspirin) 325 mg PO DAILY [facility] Last Admin: 12/22/18 09:29 Dose: 325 mg Atorvastatin Calcium (Lipitor) 40 mg PO HS [facility] Last Admin: 12/21/18 20:57 Dose: 40 mg Bisacodyl (Dulcolax) 10 mg [place] DAILYPRN PRN PRN Reason: Constipation Dipyridamole/Aspirin (Aggrenox) 1 cap PO BID [facility] Last Admin: 12/22/18 09:29 Dose: 1 cap Enoxaparin Sodium (Lovenox) 40 mg SC 0900 [facility] Last Admin: 12/22/18 09:29 Dose: 40 mg Famotidine (Pepcid) 20 mg PO BID [facility] Last Admin: 12/22/18 09:29 Dose: 20 mg Fish Oil (Fish Oil) 1,000 mg PO BID [facility] Last Admin: 12/22/18 09:29 Dose: 1,000 mg Guaifenesin (Robitussin Sf) 200 mg PO Q4H PRN PRN Reason: Cough Hydralazine HCl (Apresoline) 10 mg SLOW IVP Q4H PRN PRN Reason: SBP Greater Than 180 Loperamide HCl (Imodium) 2 mg PO PRN PRN PRN Reason: Diarrhea/Loose Stools Loratadine (Claritin) 10 mg PO DAILYPRN PRN PRN Reason: Sinus Symptoms Mineral Oil/White Petrolatum (Eucerin Cream) 0 gm TOP BIDPRN PRN PRN Reason: Dry Skin Multivitamins/Zinc (Stress 600 With Zinc) 1 tab PO HS [facility] Last Admin: 12/21/18 21:04 Dose: 1 tab Ondansetron HCl (Zofran) 4 mg IVP Q6H PRN PRN Reason: Nausea/Vomiting Ondansetron HCl (Zofran Odt) 4 mg PO Q6H PRN PRN Reason: Nausea/Vomiting Senna/Docusate Sodium (Senokot S) 2 tab PO BID PRN PRN Reason: Constipation Sodium Chloride (Flush - Normal Saline) 10 ml IVF PRN PRN PRN Reason: Saline Flush Sodium Chloride ([place] Nasal [place] 0.65%) 0 ml EA NARE QIDPRN PRN PRN Reason: Nasal Congestion Throat Lozenges (Cepastat Lozenges) 1 smita PO Q2H PRN PRN Reason: Sore Throat
--- NOTE | 2018-12-22 20:36 | CON ---
DATE OF CONSULTATION: HISTORY OF PRESENT ILLNESS: Lawson Graham is a 68-year-old white who has history of stroke in 2009 without residual. He was hospitalized here again in September 2018 with transient left-sided weakness without evidence of new cerebrovascular accident. He now is hospitalized with right-sided weakness, which started around 5:00 p.m. on the day of admission. He also does have some slurred speech with that. Carotid Doppler revealed no significant hemodynamic stenosis. Brain MRI reveals acute lacunar infarct in the left periventricular white matter and severe ischemic white matter changes with cortical atrophy and old right occipital infarct. He is on telemetry since admission, and at times will have abrupt slowing of his heart rate, once at 7:00 a.m. He also had a 4-second pause at 8:00 p.m. one night. His does state that he has frequent snoring at night, reported that she has to wake him up. She is uncertain if he is apneic. He apparently awakens in the morning not feeling rested and his states that he falls asleep multiple times per day. Mr. Graham denies ever having any syncopal episodes. He denies any lightheadedness, dizziness, chest pain, or shortness of breath. PAST MEDICAL HISTORY: History of CVA in 2009, TIA in September 2018, hypercholesterolemia. PAST SURGICAL HISTORY: Operations, oral surgery. MEDICATIONS: 1. Aspirin 325 daily. 2. Aggrenox 1 b.i.d. 3. Atorvastatin 40 at bedtime. 4. [place]-3. 5. Vitamin B complex. ALLERGIES: SHELLFISH. SOCIAL HISTORY: He does not smoke. He has 1 or 2 drinks once a month. FAMILY HISTORY: Negative for coronary artery disease. REVIEW OF SYSTEMS: A 12-point review of systems is unremarkable. PHYSICAL EXAMINATION: VITAL SIGNS: Blood pressure `145/76, pulse 96. HEENT: PERRL. NECK: Supple. CHEST: Clear. CARDIAC: S1, S2 normal without any S3, S4, or murmurs. Carotid upstrokes normal without bruits. ABDOMEN: Normal bowel sounds without tenderness, organomegaly. EXTREMITIES: Reveal no clubbing, cyanosis, or edema. NEUROLOGICAL: Reveals normal strength of right and left arms. He does have some right facial droop and some mild aphasia. LABORATORY DATA: EKG reveals normal sinus rhythm and is unremarkable. He did undergo echocardiogram on [place] 22, which revealed ejection fraction of 55% to 60% with mild mitral regurgitation, mild tricuspid regurgitation, mild pulmonic regurgitation. CBC is unremarkable. INR 1.0. Sodium 143, potassium 3.7, chloride 109, carbon dioxide 22, BUN 14, creatinine 0.87. Cholesterol 112, triglycerides 83, HDL 31, LDL 64. IMPRESSION: 1. Asymptomatic sinus pause of 4 seconds. It does not sound as if Mr. Graham has ever had any syncopal episodes, lightheadedness, or dizziness. 2. Possible sleep apnea. This certainly may be the cause of some of his episodes of bradycardia and his sinus pause. His volunteers that he snores all the time and in the morning he never feels that he is adequately rested. He has daytime sleeping multiple times per day. 3. History of CVA in 2010 and at present time. 4. Hypercholesterolemia. PLAN: I feel that Mr. Graham should undergo a sleep study to evaluate for possible sleep apnea, which certainly could be the cause for his sinus pauses and episodes of bradycardia. A 30-day monitor will be placed. I feel that he may move on to rehab for his stroke. However, sleep study should be scheduled as soon as possible for further evaluation of this. Job ID: [id number] MTDD
[2018-12-22] MEDS: Stress 600 With Zinc 1 TAB PO SCH (20:43)
[2018-12-22] MEDS: Atorvastatin Calcium 40 MG TAB PO SCH (20:44)
[2018-12-23] MEDS: Aspirin 325 MG TAB PO SCH (08:04)
[2018-12-23] MEDS: Famotidine 20 MG TAB PO SCH (08:05)
[2018-12-23] MEDS: Fish Oil 1,000 MG CAP PO SCH (08:05)
[2018-12-23] MEDS: Enoxaparin Sodium 40 MG/0.4 ML SYRINGE SC SCH (08:05)
[2018-12-23] MEDS: Aggrenox 200-25mg CAP PO SCH (08:05)
--- NOTE | 2018-12-23 11:31 | DIS ---
DATE OF ADMISSION: 12/15/2018 DATE OF DISCHARGE: 12/23/2018 PRIMARY CARE PHYSICIAN: [facility] Call admission. DISCHARGE DISPOSITION: Rehab. PRIMARY DISCHARGE DIAGNOSES: 1. Acute cerebrovascular accident due to left periventricular white matter infarct. 2. Sinus bowel suspecting from sleep apnea. 3. Acute kidney injury, resolved. SECONDARY DISCHARGE DIAGNOSES: 1. Hypertension. 2. Dyslipidemia. PRIMARY PROCEDURE/OPERATION: None. RADIOLOGICAL INVESTIGATION: CT brain negative for any acute intracranial process. MRI brain showed acute left periventricular white matter infarct. Echocardiography was normal. Carotid Doppler was normal. Chest x-ray normal. SIGNIFICANT LABORATORY DATA: WBC 6.2, hemoglobin 14.9, platelets 231. INR 1.0. Sodium 143, creatinine 0.87, LDL 64. Homocysteine 4.90. LFT normal. Cardiac enzyme negative. Syphilis negative. DISCHARGE MEDICATIONS: 1. Aspirin 325 mg p.o. daily. 2. Aggrenox 1 capsule p.o. b.i.d. 3. Lipitor 40 mg p.o. at bedtime. 4. Cranberry 400 mg p.o. b.i.d. 5. Fish oil one capsule p.o. b.i.d. 6. Vitamin B complex one tablet p.o. daily. CONTRAINDICATION: The patient is not requiring any blood pressure medication because his blood pressure is normal without medication. CODE STATUS: Full code. INPATIENT PRECINCT POLICE SERGEANT: Neurology was following while in hospital. Cardiology was consulted for sinus pause. TEST RESULTS PENDING ON DISCHARGE: None. ALLERGIES: SHELLFISH. DISCHARGE PLAN: Posthospital, the patient will be discharged to rehab. Subsequently, the patient will follow up with primary care physician, Neurology, and Cardiology. The patient will be given outpatient followup for sleep study to rule out central sleep apnea. HOSPITAL COURSE: A 68-year-old male, who was admitted by Dr. Brennan. Please see his H and P for further details. On admission, the patient was having motor weakness and dysarthria. Initial CT brain was negative. He was having left-sided weakness and left-sided facial droop with slurred speech. MRI did show right periventricular infarct. Entire stroke team was following while in hospital. We did carotid Doppler and echocardiography, which were unremarkable. The patient was requiring rehab and that is why with help of mental health case manager, rehab was arranged. During telemonitoring, we found that the patient had couple of times sinus pause, and that is why we consulted Cardiology and they recommended sleep study to rule out central sleep apnea. Holter monitoring was prescribed by Cardiology. The patient did not require any blood pressure medication because his blood pressure remains normal even without medication. At this point, the patient is medically stable. The patient is seen and examined at bedside today. Paper work for discharge done. Discharge medication reconciliation done. All review of systems reviewed with him and negative. His examination has unchanged significantly. He has only mild dysarthria. His motor weakness is improving. Once we have bed available, then we will consider discharging him to rehab. Job ID: [id number]
[2018-12-23 12:08] VITALS: BP 110/82; TEMP 97.8
--- NOTE | 2018-12-23 12:32 | PDOC.PN ---
- Subjective Encounter Start Date: 12/23/18 Encounter Start Time: 09:15 Patient seen and examined. No new complaints. No overnight events - Objective Resuscitation Status - Order Detail: 12/15/18 22:00 Resuscitation Status Routine Resuscitation Status: FULL: Full Resuscitation MAR Reviewed: Yes Vital Signs & Weight: Vital Signs (12 hours) Temp Pulse Resp BP Pulse Ox 12/23/18 12:00 97.8 F 85 20 110/82 96 12/23/18 07:50 98.1 F 82 20 119/74 96 12/23/18 03:57 97.7 F 83 18 117/76 97 Weight Weight 163 lb 6.4 oz I&O: 12/22/18 12/23/18 12/24/18 06:59 06:59 06:59 Intake Total 240 890 Balance 240 890 Result Diagrams: 12/21/18 05:46 12/21/18 05:46 EKG Reviewed by me: Yes (nsr) Phys Exam - Physical Examination Constitutional: NAD HEENT: PERRLA, moist MMs, sclera anicteric Neck: no JVD, supple Respiratory: no wheezing, no rales, no rhonchi Cardiovascular: RRR, no significant murmur, no rub Gastrointestinal: soft, non-tender, no distention, positive bowel sounds Musculoskeletal: no edema, pulses present Neurological: non-focal, normal sensation Lymphatic: no nodes Psychiatric: normal affect Skin: no rash, normal turgor Dx/Plan (1) Acute CVA (cerebrovascular accident) Code(s): I63.9 - CEREBRAL INFARCTION, UNSPECIFIED Status: Acute Comment: left periventricular white mattor infarct (2) Hypertension Code(s): I10 - ESSENTIAL (PRIMARY) HYPERTENSION Status: Chronic (3) Dyslipidemia Code(s): E78.5 - HYPERLIPIDEMIA, UNSPECIFIED Status: Chronic (4) Acute kidney injury Code(s): N17.9 - ACUTE KIDNEY FAILURE, UNSPECIFIED Status: Resolved (5) Sinus pause Code(s): I45.5 - OTHER SPECIFIED HEART BLOCK Status: Acute - Plan cont current plan of care * medication reviewed as below * symptomatic treatment * possible discharge today * see discharge summery. Review of Systems - Review of Systems ENT: negative: Ear Pain, Ear Discharge, Nose Pain, Nose Discharge, Nose Congestion, Mouth Pain, Mouth Swelling, Throat Pain, Throat Swelling, Other Respiratory: negative: Cough, Dry, Shortness of Breath, Hemoptysis, SOB with Excertion, Pleuritic Pain, Sputum, Wheezing Cardiovascular: negative: chest pain, palpitations, orthopnea, paroxysmal nocturnal dyspnea, edema, light headedness, other Gastrointestinal: negative: Nausea, Vomiting, Abdominal Pain, Diarrhea, Constipation, Melena, Hematochezia, Other Genitourinary: negative: Dysuria, Frequency, Incontinence, Hematuria, Retention , Other Musculoskeletal: negative: Neck Pain, Shoulder Pain, Arm Pain, Back Pain, Hand Pain, Leg Pain, Foot Pain, Other Skin: negative: Rash, Lesions, Martin, Bruising, Other - Medications/Allergies Allergies/Adverse Reactions: Allergies Allergy/AdvReac Type Severity Reaction Status Date / Time shellfish derived Allergy Verified 12/17/18 00:48 Medications: Current Medications Acetaminophen (Tylenol) 650 mg PO Q4H PRN PRN Reason: Headache/Fever/Mild Pain (1-3) Artificial Tears (Tears Naturale) 2 drop EA EYE PRN PRN PRN Reason: Dry Eyes Aspirin (Aspirin) 325 mg PO DAILY [facility] Last Admin: 12/23/18 08:04 Dose: 325 mg Atorvastatin Calcium (Lipitor) 40 mg PO HS [facility] Last Admin: 12/22/18 20:44 Dose: 40 mg Bisacodyl (Dulcolax) 10 mg MN DAILYPRN PRN PRN Reason: Constipation Dipyridamole/Aspirin (Aggrenox) 1 cap PO BID [facility] Last Admin: 12/23/18 08:05 Dose: 1 cap Enoxaparin Sodium (Lovenox) 40 mg SC 0900 [facility] Last Admin: 12/23/18 08:05 Dose: 40 mg Famotidine (Pepcid) 20 mg PO BID [facility] Last Admin: 12/23/18 08:05 Dose: 20 mg Fish Oil (Fish Oil) 1,000 mg PO BID [facility] Last Admin: 12/23/18 08:05 Dose: 1,000 mg Guaifenesin (Robitussin Sf) 200 mg PO Q4H PRN PRN Reason: Cough Hydralazine HCl (Apresoline) 10 mg SLOW IVP Q4H PRN PRN Reason: SBP Greater Than 180 Loperamide HCl (Imodium) 2 mg PO PRN PRN PRN Reason: Diarrhea/Loose Stools Loratadine (Claritin) 10 mg PO DAILYPRN PRN PRN Reason: Sinus Symptoms Mineral Oil/White Petrolatum (Eucerin Cream) 0 gm TOP BIDPRN PRN PRN Reason: Dry Skin Multivitamins/Zinc (Stress 600 With Zinc) 1 tab PO HS [facility] Last Admin: 12/22/18 20:43 Dose: 1 tab Ondansetron HCl (Zofran) 4 mg IVP Q6H PRN PRN Reason: Nausea/Vomiting Ondansetron HCl (Zofran Odt) 4 mg PO Q6H PRN PRN Reason: Nausea/Vomiting Senna/Docusate Sodium (Senokot S) 2 tab PO BID PRN PRN Reason: Constipation Sodium Chloride (Flush - Normal Saline) 10 ml IVF PRN PRN PRN Reason: Saline Flush Sodium Chloride ([place] Nasal [place] 0.65%) 0 ml EA NARE QIDPRN PRN PRN Reason: Nasal Congestion Throat Lozenges (Cepastat Lozenges) 1 smita PO Q2H PRN PRN Reason: Sore Throat
== END 2018-12-23 13:35 | DRG 65 ==
LOC: ERS 19:41 → ERHOLD 20:57 → 2SE 12-16 23:51
PROVIDERS: ADMIT Hospitalist; ATTEND Hospitalist
DX: I63.89 Other cerebral infarction (principal); N17.9 Acute kidney failure, unspecified; G81.91 Hemiplegia, unspecified affecting right dominant side; R29.704 NIHSS score 4; R47.1 Dysarthria and anarthria; I45.5 Other specified heart block; G47.30 Sleep apnea, unspecified; I10 Essential (primary) hypertension; E78.5 Hyperlipidemia, unspecified; Z82.3 Family history of stroke; I69.398 Other sequelae of cerebral infarction; R27.8 Other lack of coordination; Z79.82 Long term (current) use of aspirin; Z91.013 Allergy to seafood
CPT/HCPCS: 36415; 36416; 70450; 70551; 71045; 80048; 80053; 80061; 82550; 83090; 83880; 84484; 85025; 85610; 85730; 86780; 93005; 93306; 93880; 96360; 96372; J1650; S0028

== ENCOUNTER 2020-06-08 11:03 | Outpatient (CLI) | payer MEDICARE, BC ==
--- NOTE | 2020-06-08 12:04 | ULT ---
ULTRASOUND RETROPERITONEUM COMPLETE: (RENAL) DATE: 06/08/2020 HISTORY: 69-year-old male with calculus of kidney FINDINGS: Right kidney: 10 x 5 x 4.5 cm. Left kidney: 11 x 5 x 5.5 cm. Bilateral renal pelves are mildly dilated. Approximately 1 cm hyperechoic shadowing focus at left renal upper-mid pole junction with shadowing c onsistent with calculus. Prevoid bladder volume 110 mL. Post void bladder volume 65 mL. IMPRESSION: 1) prominent left renal calculus 2) mildly dilated bilateral renal pelves 3) incomplete micturition
== END 2020-06-08 11:04 | disposition home or self-care (01) ==
LOC: SCSULT 11:03
PROVIDERS: ATTEND Urology
DX: N20.0 Calculus of kidney (principal); R39.14 Feeling of incomplete bladder emptying; N28.89 Other specified disorders of kidney and ureter
CPT/HCPCS: 76770

== ENCOUNTER 2020-06-21 11:13 | Outpatient (CLI) | payer MEDICARE, BC ==
--- NOTE | 2020-06-21 11:37 | CT ---
CT Stone Protocol: 06/21/2020 12:00 AM HISTORY: Left renal calcification seen on recent ultrasound COMPARISON: Ultrasound 06/08/2020 TECHNIQUE: Multiple contiguous axial images were obtained and a CT of the abdomen and pelvis without IV contrast . Coronal and sagittal reformats were performed. FINDINGS: This examination is limited for the evaluation of solid organs and vascular structures due to the lac k of intravenous contrast. Lower Chest: within normal limits. Abdomen: Liver: within normal limits. Bile Ducts: Normal caliber. Gallbladder: No calcified gallstones. Normal caliber wall. Pancreas: within normal limits. Spleen: within normal limits. Adrenals: within normal limits. Kidneys: Multiple nonobstructing calcifications are seen in the left kidney measuring up to 5 mm in s ize. Pelvis: Reproductive Organs: Calcifications in the prostate which is moderately enlarged. Ureters: within normal limits. Bladder: within normal limits. Bowel: Normal caliber. Scattered diverticula in the colon. Normal appendix Mesenteric Lymph Nodes: No enlarged mesenteric lymph nodes. Peritoneum: No ascites or free air, no fluid collection. Vessels: Atherosclerotic calcifications in the aorta Retroperitoneum: within normal limits. Abdominal Wall: within normal limits. Bones: Degenerative changes in the spine. IMPRESSION: 1. Multiple nonobstructing left renal calculi 2. Diverticulosis
== END 2020-06-21 11:14 | disposition home or self-care (01) ==
LOC: BICCT 11:13
PROVIDERS: ATTEND Urology
DX: N20.0 Calculus of kidney (principal); K57.30 Diverticulosis of large intestine without perforation or abscess without bleeding
CPT/HCPCS: 74176

== ENCOUNTER 2023-12-23 22:01 | Inpatient (IN) | payer MEDICARE, BC ==
[~2023-12-23 22:01] MED LIST changes: -ISOVUE-370 76%-LOCM 1 ML ONE; +Iopamidol-370 76% 500 ML MDV (1 ML CHARGE) ONE
[2023-12-23 22:53] LABS: #Basophils 0.1 thou/uL (0.0-0.2); #Eosinphils 0.1 thou/uL (0.0-0.7); #Monocytes 0.9 thou/uL (0.11-0.59); #Neutrophils 9.7 thou/uL (1.40-6.50); %Basophils 0.4 % (0.0-1.0); %Eosinophils 1.1 % (0.0-10.0); %Lymphocytes 6.6 % (21.0-51.0); %Monocytes 7.7 % (0.0-10.0); %Neutrophils 83.9 % (42.0-75.0); Hematocrit 40.2 % (42.0-52.0); Hemoglobin 12.9 g/dL (14.0-18.0); Mean Corpuscular HGB CONC 32.1 g/dL (32.0-36.0); Mean Corpuscular Hemoglobin 30.7 pg (27.0-31.0); Mean Corpuscular Volume 95.7 fl (78.0-98.0); Mean Platelet Volume 9.2 fL (7.4-10.4); Platelet Count 260 10x3/uL (130-400); RBC Distribution Width 12.9 % (11.5-14.5); White Blood Cell (WBC) Count 11.5 10x3/uL (4.8-10.8)
[2023-12-23 23:18] LABS: ALT (SGPT) 21 U/L (8-55); AST (SGOT) 19 U/L (5-34); Albumin 3.6 g/dL (3.4-4.8); Alkaline Phosphatase 104 U/L (40-110); Anion Gap 12 mmol/L (10-20); BUN (Urea Nitrogen) 18 mg/dL (8.4-25.7); Bilirubin, Total 0.3 mg/dL (0.2-1.2); Calc. Creatinine Clearance 0 mL/min (70-130); Calcium 8.9 mg/dL (7.8-10.44); Carbon Dioxide 24 mmol/L (23-31); Chloride 110 mmol/L (98-107); Estimated GFR 57; Globulin 3.6 g/dL (2.4-3.5); Glucose 98 mg/dL (83-110); Lipase 23 U/L (8-78); Potassium 4.2 mmol/L (3.5-5.1); Protein, Total 7.2 g/dL (5.8-8.1); Sodium 142 mmol/L (136-145)
[2023-12-24 01:34] LABS: Bilirubin Negative (Negative); Blood, Urine 2+ (Negative); CAUTI Indications for Culture Pelvic or flank pain; Clarity Turbid (Clear); Glucose, Urine (Dipstick) Normal (Negative); Ketone, Urine Negative (Negative); Leukocyte 500 Leu/uL (Negative); Nitrite Negative (Negative); Protein, Urine (Dipstick) 100 mg/dL (Neg-Trace); RBC/HPF Greater than 50 HPF (0-3); Specific Gravity, Urine 1.028 (1.002-1.036); Squamous Epithelial 0-3 HPF (0-3); Urobilinogen Normal mg/dL (Less than 2); WBC/HPF Greater than 50 HPF (0-3)
[2023-12-24 01:37] LABS: Bacteria/HPF Rare-Few HPF (None Seen)
[2023-12-24 01:39] LABS: Urine Culture Reflex Yes Yes
[2023-12-24] MEDS ORDERED: Cefepime 2 GM VIAL ONE (02:14)
[2023-12-24] MEDS ORDERED: Sodium Chloride 0.9% 100 ML ONE (02:15)
[2023-12-24 02:37] LABS: Lactic Acid 1.3 mmol/L (0.5-2.2)
[2023-12-24] MEDS ORDERED: Acetaminophen 650 MG Suppository PR PRN (03:19)
[2023-12-24] MEDS: Vancomycin (BATCH) 1.25 GM in Premix 1 BAG IVPB SCH (03:43)
[2023-12-24] MEDS: Sodium Chloride 0.9% 1,000 ML IV SCH (03:44)
[2023-12-24] MEDS ORDERED: Acetaminophen 325 MG TAB ONE (03:46)
[2023-12-24] MEDS: Acetaminophen 325 MG TAB PO PRN (03:47)
[2023-12-24] MEDS: Sodium Chloride 0.9% 500 ML IV SCH (03:48)
[2023-12-24 03:57] LABS: #Eosinphils 0.1 thou/uL (0.0-0.7); #Neutrophils 7.9 thou/uL (1.40-6.50); %Basophils 0.4 % (0.0-1.0); %Eosinophils 1.3 % (0.0-10.0); %Lymphocytes 9.2 % (21.0-51.0); %Neutrophils 78.8 % (42.0-75.0); Hematocrit 35.8 % (42.0-52.0); Hemoglobin 11.6 g/dL (14.0-18.0); Mean Corpuscular HGB CONC 32.4 g/dL (32.0-36.0); Mean Corpuscular Hemoglobin 30.4 pg (27.0-31.0); Mean Corpuscular Volume 93.7 fl (78.0-98.0); Mean Platelet Volume 9.3 fL (7.4-10.4); Platelet Count 220 10x3/uL (130-400); RBC Distribution Width 12.9 % (11.5-14.5); Red Blood Cell (RBC) Count 3.82 mill/uL (4.70-6.10); White Blood Cell (WBC) Count 10.1 10x3/uL (4.8-10.8)
[2023-12-24 04:27] LABS: Anion Gap 11 mmol/L (10-20); BUN (Urea Nitrogen) 16 mg/dL (8.4-25.7); Calc. Creatinine Clearance 0 mL/min (70-130); Calcium 8.1 mg/dL (7.8-10.44); Carbon Dioxide 21 mmol/L (23-31); Chloride 113 mmol/L (98-107); Estimated GFR 69; Glucose 105 mg/dL (83-110); Sodium 141 mmol/L (136-145)
[2023-12-24 04:28] LABS: Vancomycin, Trough Less than 1.1 ug/mL
[2023-12-24 07:29] VITALS: BMI 19.2
[2023-12-24] MEDS ORDERED: Senokot S 8.6-50 MG TAB ONE (09:23)
[2023-12-24] MEDS: Senokot S 8.6-50 MG TAB PO SCH (09:38)
[2023-12-24] MEDS ORDERED: Iopamidol 0 ML ONE (13:10)
[2023-12-24] MEDS ORDERED: Esmolol 100 MG/10 ML VIAL ONE (13:21)
[2023-12-24] MEDS ORDERED: PROPOFOL 20 ML ONE ×3 (13:21→14:13)
[2023-12-24] MEDS ORDERED: Lidocaine 2% PF 100 mg/5 ml Syringe ONE (13:21)
[2023-12-24] MEDS ORDERED: fentaNYL 50 mcg/mL 1 mL Vial ONE (13:21)
[2023-12-24] MEDS ORDERED: Cefepime 1 GM VIAL ONE (14:08)
[2023-12-24] MEDS: Cefepime 2 GM in Sodium Chloride 0.9% 100 ML IVPB SCH (17:18)
[2023-12-24] MEDS: HYDROcodone/Acetaminophen 5/325 mg Tablet PO PRN (22:06)
[2023-12-25] MEDS: Vancomycin (BATCH) 1.25 GM in Premix 1 BAG IVPB SCH (03:45)
[2023-12-25 05:40] LABS: #Eosinphils 0.4 thou/uL (0.0-0.7); #Monocytes 0.9 thou/uL (0.11-0.59); #Neutrophils 6.3 thou/uL (1.40-6.50); %Basophils 0.4 % (0.0-1.0); %Lymphocytes 15.4 % (21.0-51.0); %Monocytes 9.9 % (0.0-10.0); %Neutrophils 70.1 % (42.0-75.0); Hematocrit 33.9 % (42.0-52.0); Hemoglobin 10.9 g/dL (14.0-18.0); Mean Corpuscular HGB CONC 32.2 g/dL (32.0-36.0); Mean Corpuscular Hemoglobin 30.9 pg (27.0-31.0); Mean Platelet Volume 9.5 fL (7.4-10.4); Platelet Count 207 10x3/uL (130-400); RBC Distribution Width 12.9 % (11.5-14.5); Red Blood Cell (RBC) Count 3.53 mill/uL (4.70-6.10)
[2023-12-25 06:05] LABS: Anion Gap 11 mmol/L (10-20); BUN (Urea Nitrogen) 11 mg/dL (8.4-25.7); Calc. Creatinine Clearance 62 mL/min (70-130); Calcium 7.9 mg/dL (7.8-10.44); Carbon Dioxide 19 mmol/L (23-31); Chloride 113 mmol/L (98-107); Estimated GFR 85; Glucose 83 mg/dL (83-110); Potassium 3.4 mmol/L (3.5-5.1); Sodium 140 mmol/L (136-145)
[2023-12-25] MEDS: Potassium Bicarbonate/Cit Ac 20 MEQ TAB PO SCH (08:38)
[2023-12-25] MEDS: Sodium Chloride 0.9% 1,000 ML IV SCH (09:06)
[2023-12-25] MEDS: Cefepime 1 GM in Sodium Chloride 0.9% 100 ML IVPB SCH (13:26)
[2023-12-26 02:23] LABS: #Basophils 0.1 thou/uL (0.0-0.2); #Eosinphils 0.4 thou/uL (0.0-0.7); #Monocytes 0.8 thou/uL (0.11-0.59); #Neutrophils 5.6 thou/uL (1.40-6.50); %Basophils 0.6 % (0.0-1.0); %Eosinophils 4.4 % (0.0-10.0); %Lymphocytes 18.7 % (21.0-51.0); %Monocytes 9.6 % (0.0-10.0); %Neutrophils 66.5 % (42.0-75.0); Hematocrit 34.4 % (42.0-52.0); Hemoglobin 11.2 g/dL (14.0-18.0); Mean Corpuscular HGB CONC 32.6 g/dL (32.0-36.0); Mean Corpuscular Hemoglobin 30.7 pg (27.0-31.0); Mean Corpuscular Volume 94.2 fl (78.0-98.0); Mean Platelet Volume 9.1 fL (7.4-10.4); Platelet Count 206 10x3/uL (130-400); RBC Distribution Width 12.6 % (11.5-14.5); Red Blood Cell (RBC) Count 3.65 mill/uL (4.70-6.10); White Blood Cell (WBC) Count 8.5 10x3/uL (4.8-10.8)
[2023-12-26 02:43] LABS: Vancomycin, Trough 6.4 ug/mL
[2023-12-26 03:17] LABS: Anion Gap 12 mmol/L (10-20); BUN (Urea Nitrogen) 7 mg/dL (8.4-25.7); Calc. Creatinine Clearance 73 mL/min (70-130); Calcium 7.8 mg/dL (7.8-10.44); Carbon Dioxide 20 mmol/L (23-31); Chloride 111 mmol/L (98-107); Estimated GFR 92; Glucose 82 mg/dL (83-110); Potassium 3.4 mmol/L (3.5-5.1); Sodium 140 mmol/L (136-145)
[2023-12-26] MEDS: Vancomycin 1 GM in Premix 1 BAG IVPB SCH (03:38)
[2023-12-26] MEDS: Potassium Chloride 20 MEQ TAB PO SCH (08:42)
[2023-12-27 06:29] LABS: #Eosinphils 0.3 thou/uL (0.0-0.7); #Monocytes 0.8 thou/uL (0.11-0.59); #Neutrophils 6.5 thou/uL (1.40-6.50); %Basophils 0.5 % (0.0-1.0); %Eosinophils 3.6 % (0.0-10.0); %Lymphocytes 13.1 % (21.0-51.0); %Monocytes 8.7 % (0.0-10.0); %Neutrophils 73.8 % (42.0-75.0); Hematocrit 37.8 % (42.0-52.0); Hemoglobin 12.3 g/dL (14.0-18.0); Mean Corpuscular HGB CONC 32.5 g/dL (32.0-36.0); Mean Corpuscular Hemoglobin 30.1 pg (27.0-31.0); Mean Corpuscular Volume 92.6 fl (78.0-98.0); Mean Platelet Volume 9.1 fL (7.4-10.4); Platelet Count 242 10x3/uL (130-400); RBC Distribution Width 12.5 % (11.5-14.5); Red Blood Cell (RBC) Count 4.08 mill/uL (4.70-6.10); White Blood Cell (WBC) Count 8.8 10x3/uL (4.8-10.8)
[2023-12-27 06:59] LABS: Anion Gap 12 mmol/L (10-20); BUN (Urea Nitrogen) 4 mg/dL (8.4-25.7); Calc. Creatinine Clearance 76 mL/min (70-130); Calcium 8.2 mg/dL (7.8-10.44); Carbon Dioxide 23 mmol/L (23-31); Chloride 109 mmol/L (98-107); Estimated GFR 93; Glucose 95 mg/dL (83-110); Potassium 3.5 mmol/L (3.5-5.1); Sodium 140 mmol/L (136-145)
[2023-12-27] MEDS: cefTRIAXone\\ROCEPHIN 1 GM in Sodium Chloride 0.9% 100 ML IVPB SCH (09:34)
[2023-12-27] MEDS: HYDROcodone/Acetaminophen 5/325 mg Tablet PO PRN (21:06)
[2023-12-28 06:29] LABS: #Eosinphils 0.4 thou/uL (0.0-0.7); #Monocytes 0.9 thou/uL (0.11-0.59); #Neutrophils 5.9 thou/uL (1.40-6.50); %Basophils 0.3 % (0.0-1.0); %Eosinophils 4.3 % (0.0-10.0); %Lymphocytes 16.2 % (21.0-51.0); %Neutrophils 68.9 % (42.0-75.0); Hematocrit 36.4 % (42.0-52.0); Mean Corpuscular Hemoglobin 30.8 pg (27.0-31.0); Mean Corpuscular Volume 93.3 fl (78.0-98.0); Mean Platelet Volume 9.2 fL (7.4-10.4); Platelet Count 249 10x3/uL (130-400); RBC Distribution Width 12.6 % (11.5-14.5); White Blood Cell (WBC) Count 8.6 10x3/uL (4.8-10.8)
[2023-12-28 06:54] LABS: Anion Gap 9 mmol/L (10-20); BUN (Urea Nitrogen) 5 mg/dL (8.4-25.7); Calc. Creatinine Clearance 75 mL/min (70-130); Calcium 7.9 mg/dL (7.8-10.44); Carbon Dioxide 23 mmol/L (23-31); Chloride 111 mmol/L (98-107); Estimated GFR 93; Glucose 85 mg/dL (83-110); Potassium 3.4 mmol/L (3.5-5.1); Sodium 140 mmol/L (136-145)
[2023-12-28] MEDS: Potassium Bicarbonate/Cit Ac 20 MEQ TAB PO SCH (09:21)
[2023-12-28] MEDS: Sodium Chloride 0.9% 1,000 ML IV SCH (13:20)
[2023-12-29 05:54] LABS: #Basophils 0.1 thou/uL (0.0-0.2); #Eosinphils 0.4 thou/uL (0.0-0.7); #Neutrophils 8.3 thou/uL (1.40-6.50); %Basophils 0.5 % (0.0-1.0); %Eosinophils 4.1 % (0.0-10.0); %Lymphocytes 9.9 % (21.0-51.0); %Monocytes 8.9 % (0.0-10.0); %Neutrophils 76.2 % (42.0-75.0); Hematocrit 37.2 % (42.0-52.0); Hemoglobin 12.3 g/dL (14.0-18.0); Mean Corpuscular HGB CONC 33.1 g/dL (32.0-36.0); Mean Corpuscular Hemoglobin 30.1 pg (27.0-31.0); Platelet Count 260 10x3/uL (130-400); RBC Distribution Width 12.5 % (11.5-14.5); Red Blood Cell (RBC) Count 4.09 mill/uL (4.70-6.10); White Blood Cell (WBC) Count 10.9 10x3/uL (4.8-10.8)
[2023-12-29 06:14] LABS: Anion Gap 7 mmol/L (10-20); BUN (Urea Nitrogen) 6 mg/dL (8.4-25.7); Calc. Creatinine Clearance 75 mL/min (70-130); Calcium 8.1 mg/dL (7.8-10.44); Carbon Dioxide 29 mmol/L (23-31); Chloride 107 mmol/L (98-107); Estimated GFR 93; Glucose 95 mg/dL (83-110); Potassium 3.6 mmol/L (3.5-5.1); Sodium 139 mmol/L (136-145)
[2023-12-31 04:45] VITALS: TEMP 98.4
[2023-12-31 07:22] VITALS: BP 132/82
== END 2023-12-31 12:58 | DRG 853 ==
LOC: ERS 22:01 → ERHOLD 12-24 03:19 → SURG A 12-24 12:20 → 2NO 12-24 16:38 → T4-B 12-26 11:51
PROVIDERS: ADMIT Family Medicine; ATTEND Internal Medicine
PROC: 0T9B70Z Drainage of Bladder with Drainage Device, Via Natural or Artificial Opening (ICD-10-PCS; principal; 2023-12-24)
PROC: 0T778DZ Dilation of Left Ureter with Intraluminal Device, Via Natural or Artificial Opening Endoscopic (ICD-10-PCS; 2023-12-24)
PROC: 3E03329 Introduction of Other Anti-infective into Peripheral Vein, Percutaneous Approach (ICD-10-PCS; 2023-12-24)
DX: A41.9 Sepsis, unspecified organism (principal); G93.41 Metabolic encephalopathy; N13.2 Hydronephrosis with renal and ureteral calculous obstruction; N39.0 Urinary tract infection, site not specified; K56.41 Fecal impaction; Z91.013 Allergy to seafood; Z79.899 Other long term (current) drug therapy; N40.0 Benign prostatic hyperplasia without lower urinary tract symptoms; E03.9 Hypothyroidism, unspecified; E78.5 Hyperlipidemia, unspecified; Z98.890 Other specified postprocedural states; Z79.82 Long term (current) use of aspirin
CPT/HCPCS: 36415; 51702; 71045; 74177; 74230; 80048; 80053; 80202; 81001; 83605; 83690; 85025; 87040; 87086; 93005; 96374; 96375; C2617; J0692; J0696; J2001; J2704; J3010; J3370; J3370-JW; J3490; J7050; Q9967

== ENCOUNTER 2024-01-15 16:46 | Outpatient (CLI) | payer BC, MEDICARE | END 2024-01-15 16:47 | disposition home or self-care (01) | LOC: HS RAD 16:46 | PROVIDERS: ATTEND Physical Medicine & Rehabilitation | DX: Z91.81 History of falling (principal) | CPT/HCPCS: 70450 ==

== ENCOUNTER 2024-01-24 13:52 | Outpatient (CLI) | payer MEDICARE, BC ==
[2024-01-24 15:31] LABS: Hemoglobin 14.6 g/dL (13.5-17.5); Mean Corpuscular HGB CONC 31.7 g/dL (32.0-36.0); Mean Corpuscular Hemoglobin 29.4 pg (27.0-33.0); Mean Corpuscular Volume 92.6 fl (81.2-95.1); Platelet Count 273 10x3/uL (150-450); RBC Distribution Width 13.6 % (11.5-14.5); Red Blood Cell (RBC) Count 4.97 10x6/uL (4.32-5.72); White Blood Cell (WBC) Count 8.1 10x3/uL (3.5-10.5)
[2024-01-24 15:50] LABS: Anion Gap 11 mmol/L (10-20); BUN (Urea Nitrogen) 14 mg/dL (8.4-25.7); Calc. Creatinine Clearance 0 mL/min (70-130); Calcium 8.9 mg/dL (7.8-10.44); Carbon Dioxide 28 mmol/L (23-31); Chloride 105 mmol/L (98-107); Estimated GFR 72; Glucose 99 mg/dL (83-110); PTT 28.1 sec (22.0-33.0); Potassium 4.3 mmol/L (3.5-5.1); Prothrombin Time 10.9 sec (9.5-12.1); Sodium 140 mmol/L (136-145)
== END 2024-01-24 13:53 | disposition home or self-care (01) ==
LOC: LABBT 13:52
PROVIDERS: ATTEND Urology
DX: Z01.818 Encounter for other preprocedural examination (principal); N20.0 Calculus of kidney
CPT/HCPCS: 80048; 85027; 85610; 85730; 93005; 93010

== ENCOUNTER 2024-01-31 06:02 | Day surgery (SDC) | payer MEDICARE, BC ==
[2024-01-24 14:14] VITALS: BMI 19.0
[2024-01-31] MEDS ORDERED: fentaNYL PF 100 MCG/2 ML SYRINGE ONE (06:56)
[2024-01-31] MEDS ORDERED: PROPOFOL 20 ML ONE (06:56)
[2024-01-31] MEDS ORDERED: Lidocaine 1% PF 5 ML VIAL ONE (06:57)
[2024-01-31] MEDS ORDERED: Rocuronium Bromide 10 MG/ML (10ML VIAL) ONE (06:57)
[2024-01-31] MEDS ORDERED: Sodium Chloride 0.9% 100 ML ONE (07:21)
[2024-01-31] MEDS ORDERED: cefTRIAXone (ROCEPHIN) 1 GM VIAL ONE (07:21)
[2024-01-31] MEDS ORDERED: Ketorolac Tromethamine 30 MG (1 mL) VIAL ONE (07:56)
[2024-01-31] MEDS ORDERED: Dexamethasone 20 MG/5 ML VIAL ONE (07:56)
[2024-01-31] MEDS ORDERED: Ondansetron PF 4 MG/2 ML Vial ONE (07:56)
[2024-01-31] MEDS ORDERED: Glycopyrrolate 0.2 MG/ML 5 ML SYRINGE ONE (09:32)
[2024-01-31] MEDS ORDERED: NEOSTIGMINE 3 MG/3 ML SYR 3 MG/3 ML SYRINGE ONE ×2 (09:32→11:02)
== END 2024-01-31 14:10 | disposition home or self-care (01) ==
LOC: SDC 06:02
PROVIDERS: ATTEND Urology
PROC: 0TC48ZZ Extirpation of Matter from Left Kidney Pelvis, Via Natural or Artificial Opening Endoscopic (ICD-10-PCS; principal; 2024-01-31)
PROC: 0TC78ZZ Extirpation of Matter from Left Ureter, Via Natural or Artificial Opening Endoscopic (ICD-10-PCS; 2024-01-31)
PROC: 0T778DZ Dilation of Left Ureter with Intraluminal Device, Via Natural or Artificial Opening Endoscopic (ICD-10-PCS; 2024-01-31)
DX: N20.2 Calculus of kidney with calculus of ureter (principal); N21.0 Calculus in bladder; E78.5 Hyperlipidemia, unspecified; E07.9 Disorder of thyroid, unspecified; Z91.041 Radiographic dye allergy status; Z87.442 Personal history of urinary calculi; Z79.899 Other long term (current) drug therapy; Z79.890 Hormone replacement therapy; Z79.82 Long term (current) use of aspirin; Z86.73 Personal history of transient ischemic attack (TIA), and cerebral infarction without residual deficits; Z91.013 Allergy to seafood; Z98.52 Vasectomy status
CPT/HCPCS: 52356; 74420; 82365; C1713; C1747; C1769; C2617; 88300; J0696; J1100; J1885; J2405; J2704; J3490

== ENCOUNTER 2024-02-01 17:06 | Inpatient (IN) | payer MEDICARE, BC ==
[2024-02-01] MEDS ORDERED: Acetaminophen 325 MG TAB ONE (17:37)
[2024-02-01 17:46] LABS: #Eosinphils 0.1 thou/uL (0.0-0.7); #Monocytes 0.8 thou/uL (0.11-0.59); #Neutrophils 8.9 thou/uL (1.40-6.50); %Basophils 0.2 % (0.0-1.0); %Eosinophils 1.1 % (0.0-10.0); %Monocytes 7.5 % (0.0-10.0); %Neutrophils 83.9 % (42.0-75.0); Hematocrit 41.9 % (42.0-52.0); Hemoglobin 13.7 g/dL (14.0-18.0); Mean Corpuscular HGB CONC 32.7 g/dL (32.0-36.0); Mean Corpuscular Hemoglobin 30.4 pg (27.0-31.0); Mean Corpuscular Volume 92.9 fl (78.0-98.0); Mean Platelet Volume 10.1 fL (7.4-10.4); Platelet Count 189 10x3/uL (130-400); RBC Distribution Width 13.7 % (11.5-14.5); Red Blood Cell (RBC) Count 4.51 mill/uL (4.70-6.10); White Blood Cell (WBC) Count 10.6 10x3/uL (4.8-10.8)
[2024-02-01] MEDS ORDERED: Cefepime 2 GM VIAL ONE (17:49)
[2024-02-01] MEDS ORDERED: Sodium Chloride 0.9% 100 ML ONE (17:49)
[2024-02-01 18:04] LABS: ALT (SGPT) 57 U/L (8-55); AST (SGOT) 39 U/L (5-34); Albumin 3.7 g/dL (3.4-4.8); Alkaline Phosphatase 118 U/L (40-110); Anion Gap 13 mmol/L (10-20); BUN (Urea Nitrogen) 11 mg/dL (8.4-25.7); Bilirubin, Total 0.8 mg/dL (0.2-1.2); Calc. Creatinine Clearance 0 mL/min (70-130); Carbon Dioxide 26 mmol/L (23-31); Chloride 103 mmol/L (98-107); Estimated GFR 86; Globulin 3.7 g/dL (2.4-3.5); Glucose 106 mg/dL (83-110); Potassium 3.9 mmol/L (3.5-5.1); Protein, Total 7.4 g/dL (5.8-8.1); Sodium 138 mmol/L (136-145)
[2024-02-01 18:11] LABS: Bilirubin Negative (Negative); Blood, Urine 3+ (Negative); CAUTI Indications for Culture Fever or rigors; Clarity Turbid (Clear); Glucose, Urine (Dipstick) Normal (Negative); Ketone, Urine Negative (Negative); Leukocyte 500 Leu/uL (Negative); Nitrite Negative (Negative); Protein, Urine (Dipstick) 30 mg/dL (Neg-Trace); RBC/HPF Greater than 50 HPF (0-3); Specific Gravity, Urine 1.013 (1.002-1.036); Urobilinogen Normal mg/dL (Less than 2); WBC/HPF Greater than 50 HPF (0-3); pH, Urine 7.5 (5.0-9.0)
[2024-02-01 18:13] LABS: Bacteria/HPF 1+ HPF (None Seen)
[2024-02-01 18:14] LABS: Urine Culture Reflex Yes Yes
[2024-02-01] MEDS ORDERED: Docusate 100 MG CAP PO PRN (20:20)
[2024-02-01] MEDS ORDERED: Ondansetron PF 4 MG/2 ML Vial IVP PRN (20:22)
[2024-02-01] MEDS ORDERED: HYDROcodone/Acetaminophen 10/325 mg Tablet PO PRN (20:22)
[2024-02-01] MEDS: Acetaminophen 325 MG TAB PO PRN (22:29)
[2024-02-01] MEDS: Atorvastatin Calcium 40 MG TAB PO SCH (22:29)
[2024-02-01] MEDS: Aspirin-Dipyridamole 200-25mg CAP PO SCH (22:30)
[2024-02-01] MEDS: Lactated Ringer's 1,000 ML IV SCH (23:40)
[2024-02-02] MEDS: Ibuprofen 600 MG TAB PO PRN (03:09)
[2024-02-02] MEDS: Vancomycin (BATCH) 1.25 GM in Premix 1 BAG IVPB SCH (04:11)
[2024-02-02 04:18] LABS: #Eosinphils 0.1 thou/uL (0.0-0.7); #Monocytes 0.7 thou/uL (0.11-0.59); %Basophils 0.4 % (0.0-1.0); %Eosinophils 1.4 % (0.0-10.0); %Lymphocytes 10.6 % (21.0-51.0); %Monocytes 9.5 % (0.0-10.0); %Neutrophils 77.8 % (42.0-75.0); Mean Corpuscular HGB CONC 32.3 g/dL (32.0-36.0); Mean Corpuscular Hemoglobin 30.1 pg (27.0-31.0); Mean Corpuscular Volume 93.2 fl (78.0-98.0); Mean Platelet Volume 10.2 fL (7.4-10.4); Platelet Count 149 10x3/uL (130-400); RBC Distribution Width 13.6 % (11.5-14.5); Red Blood Cell (RBC) Count 3.52 mill/uL (4.70-6.10); White Blood Cell (WBC) Count 7.7 10x3/uL (4.8-10.8)
[2024-02-02 04:55] LABS: ALT (SGPT) 49 U/L (8-55); AST (SGOT) 35 U/L (5-34); Albumin 2.6 g/dL (3.4-4.8); Alkaline Phosphatase 84 U/L (40-110); Anion Gap 11 mmol/L (10-20); BUN (Urea Nitrogen) 9 mg/dL (8.4-25.7); Bilirubin, Total 0.7 mg/dL (0.2-1.2); Calc. Creatinine Clearance 0 mL/min (70-130); Calcium 7.5 mg/dL (7.8-10.44); Carbon Dioxide 21 mmol/L (23-31); Chloride 106 mmol/L (98-107); Estimated GFR 93; Globulin 2.6 g/dL (2.4-3.5); Glucose 110 mg/dL (83-110); Potassium 3.7 mmol/L (3.5-5.1); Protein, Total 5.2 g/dL (5.8-8.1); Sodium 134 mmol/L (136-145)
[2024-02-02 05:28] LABS: Hematocrit 32.8 % (42.0-52.0); Hemoglobin 10.6 g/dL (14.0-18.0)
[2024-02-02] MEDS: Cefepime 2 GM in Sodium Chloride 0.9% 100 ML IVPB SCH ×2 (06:24→18:20)
[2024-02-02] MEDS: Levothyroxine Sodium 50 MCG TAB PO SCH (06:24)
[2024-02-02] MEDS: Senokot S 8.6-50 MG TAB PO SCH (11:09)
[2024-02-02] MEDS: Polyethylene Glycol 3350 17 GM Packet PO SCH (11:09)
[2024-02-02] MEDS: Escitalopram Oxalate 10 mg Tablet PO SCH (11:09)
[2024-02-02] MEDS: Mineral Oil ENEMA PR SCH (11:10)
[2024-02-02] MEDS: Vancomycin 1 GM in Premix 1 BAG IVPB SCH (17:11)
[2024-02-02] MEDS ORDERED: cefTRIAXone\\ROCEPHIN 1 GM in Sodium Chloride 0.9% 100 ML IVPB SCH (21:00)
[2024-02-03 08:31] LABS: Anion Gap 9 mmol/L (10-20); BUN (Urea Nitrogen) 9 mg/dL (8.4-25.7); Calc. Creatinine Clearance 78 mL/min (70-130); Calcium 8.5 mg/dL (7.8-10.44); Carbon Dioxide 27 mmol/L (23-31); Chloride 106 mmol/L (98-107); Estimated GFR 92; Glucose 98 mg/dL (83-110); Potassium 3.5 mmol/L (3.5-5.1); Sodium 138 mmol/L (136-145)
[2024-02-04] MEDS: Vancomycin 1 GM in Premix 1 BAG IVPB SCH (01:27)
[2024-02-04 04:57] LABS: #Eosinphils 0.3 thou/uL (0.0-0.7); #Monocytes 0.8 thou/uL (0.11-0.59); #Neutrophils 5.2 thou/uL (1.40-6.50); %Basophils 0.4 % (0.0-1.0); %Eosinophils 3.7 % (0.0-10.0); %Lymphocytes 16.1 % (21.0-51.0); %Monocytes 10.7 % (0.0-10.0); %Neutrophils 68.8 % (42.0-75.0); Hematocrit 36.1 % (42.0-52.0); Hemoglobin 11.9 g/dL (14.0-18.0); Mean Corpuscular Hemoglobin 29.7 pg (27.0-31.0); Mean Platelet Volume 10.2 fL (7.4-10.4); Platelet Count 179 10x3/uL (130-400); RBC Distribution Width 13.4 % (11.5-14.5); Red Blood Cell (RBC) Count 4.01 mill/uL (4.70-6.10); White Blood Cell (WBC) Count 7.6 10x3/uL (4.8-10.8)
[2024-02-04 05:24] LABS: Anion Gap 9 mmol/L (10-20); BUN (Urea Nitrogen) 10 mg/dL (8.4-25.7); Calc. Creatinine Clearance 82 mL/min (70-130); Calcium 8.1 mg/dL (7.8-10.44); Carbon Dioxide 24 mmol/L (23-31); Chloride 109 mmol/L (98-107); Estimated GFR 93; Glucose 100 mg/dL (83-110); Potassium 3.4 mmol/L (3.5-5.1); Sodium 139 mmol/L (136-145)
[2024-02-04 05:41] LABS: Vancomycin, Random 29.9 ug/mL (See Comment)
[2024-02-04] MEDS ORDERED: Electrolyte Replacement Protocol 1 EACH FS SCH (14:15)
[2024-02-04] MEDS ORDERED: Electrolyte Replacement Protocol FS PRN (14:30)
[2024-02-04] MEDS: Potassium Chloride 20 MEQ TAB PO SCH (15:16)
[2024-02-05 04:34] LABS: #Eosinphils 0.4 thou/uL (0.0-0.7); #Monocytes 0.8 thou/uL (0.11-0.59); #Neutrophils 5.3 thou/uL (1.40-6.50); %Basophils 0.5 % (0.0-1.0); %Eosinophils 4.6 % (0.0-10.0); %Lymphocytes 16.6 % (21.0-51.0); %Monocytes 10.3 % (0.0-10.0); %Neutrophils 67.7 % (42.0-75.0); Hemoglobin 11.7 g/dL (14.0-18.0); Mean Corpuscular HGB CONC 32.5 g/dL (32.0-36.0); Mean Corpuscular Hemoglobin 29.4 pg (27.0-31.0); Mean Corpuscular Volume 90.5 fl (78.0-98.0); Mean Platelet Volume 9.9 fL (7.4-10.4); Platelet Count 209 10x3/uL (130-400); RBC Distribution Width 13.5 % (11.5-14.5); Red Blood Cell (RBC) Count 3.98 mill/uL (4.70-6.10); White Blood Cell (WBC) Count 7.9 10x3/uL (4.8-10.8)
[2024-02-05 04:55] LABS: Anion Gap 10 mmol/L (10-20); BUN (Urea Nitrogen) 10 mg/dL (8.4-25.7); Calc. Creatinine Clearance 88 mL/min (70-130); Calcium 8.2 mg/dL (7.8-10.44); Carbon Dioxide 22 mmol/L (23-31); Chloride 108 mmol/L (98-107); Estimated GFR 95; Glucose 99 mg/dL (83-110); Potassium 3.6 mmol/L (3.5-5.1); Sodium 136 mmol/L (136-145)
[2024-02-05 05:09] LABS: Vancomycin, Random 31.6 ug/mL (See Comment)
[2024-02-05] MEDS: Linezolid 600 MG TAB PO SCH ×2 (10:09→19:46)
[2024-02-05 20:16] VITALS: BP 136/78; TEMP 97.4
== END 2024-02-05 21:30 | DRG 698 ==
LOC: ERS 17:06 → MSONC 20:48
PROVIDERS: ADMIT Internal Medicine; ATTEND Family Medicine
DX: N99.89 Other postprocedural complications and disorders of genitourinary system (principal); A41.9 Sepsis, unspecified organism; I69.954 Hemiplegia and hemiparesis following unspecified cerebrovascular disease affecting left non-dominant side; N13.6 Pyonephrosis; E78.5 Hyperlipidemia, unspecified; N40.0 Benign prostatic hyperplasia without lower urinary tract symptoms; E03.9 Hypothyroidism, unspecified; Z66 Do not resuscitate; N20.0 Calculus of kidney; Z79.82 Long term (current) use of aspirin; Y83.8 Other surgical procedures as the cause of abnormal reaction of the patient, or of later complication, without mention of misadventure at the time of the procedure
CPT/HCPCS: 36415; 51701; 71045; 74176; 80048; 80053; 80202; 81001; 83605; 85025; 87040; 87077; 87086; 87186; 96361; 96365; J0692; J3370; J3370-JW; J3490; J7120

== ENCOUNTER 2024-04-15 20:51 | Inpatient (IN) | payer MEDICARE, BC ==
[2024-04-15 21:42] LABS: #Basophils 0.03 10x3/uL (0.0-0.2); %Basophils 0.3 % (0.0-1.0); %Eosinophils 1.5 % (0.0-10.0); %Lymphocytes 5.2 % (21.0-51.0); %Monocytes 6.9 % (0.0-10.0); %Neutrophils 85.7 % (42.0-75.0); Hemoglobin 13.4 g/dL (14.0-18.0); Mean Corpuscular HGB CONC 31.9 g/dL (32.0-36.0); Mean Corpuscular Hemoglobin 29.7 pg (27.0-31.0); Mean Corpuscular Volume 93.1 fL (78.0-98.0); Mean Platelet Volume 9.7 fL (7.4-10.4); Platelet Count 219 10x3/uL (130-400); RBC Distribution Width 15.2 % (11.5-14.5); Red Blood Cell (RBC) Count 4.51 mill/uL (4.70-6.10)
[2024-04-15 22:20] LABS: Troponin I Less than 0.010 ng/mL (< 0.028)
[2024-04-15 22:54] LABS: ALT (SGPT) 22 U/L (8-55); AST (SGOT) 18 U/L (5-34); Albumin 3.1 g/dL (3.4-4.8); Alkaline Phosphatase 111 U/L (40-110); Anion Gap 16 mmol/L (10-20); BUN (Urea Nitrogen) 24 mg/dL (8.4-25.7); Bilirubin, Total 0.4 mg/dL (0.2-1.2); Calc. Creatinine Clearance 0 mL/min (70-130); Calcium 8.5 mg/dL (7.8-10.44); Carbon Dioxide 25 mmol/L (23-31); Chloride 113 mmol/L (98-107); Estimated GFR 64; Globulin 3.6 g/dL (2.4-3.5); Glucose 98 mg/dL (83-110); Potassium 4.2 mmol/L (3.5-5.1); Protein, Total 6.7 g/dL (5.8-8.1); Sodium 150 mmol/L (136-145)
[2024-04-15] MEDS ORDERED: Cefepime 2 GM VIAL ONE (23:08)
[2024-04-15] MEDS ORDERED: Sodium Chloride 0.9% 100 ML ONE (23:08)
[2024-04-15 23:55] LABS: Influenza A by NAA Not Detected (NotDetected); Influenza B by NAA Not Detected (NotDetected); SARS-CoV-2 NAA Rapid Test Not Detected (NotDetected)
[2024-04-16] MEDS ORDERED: Vancomycin 1 GM/200 ML (FROZEN) BAG ONE (00:12)
[2024-04-16] MEDS ORDERED: Lactated Ringer's 1,000 ML IV SCH (01:00)
[2024-04-16 01:02] LABS: Bilirubin Negative (Negative); Blood, Urine 1+ (Negative); CAUTI Indications for Culture Alt mental st,lethar; Clarity Clear (Clear); Glucose, Urine (Dipstick) Normal (Negative); Ketone, Urine Trace mg/dL (Negative); Leukocyte 25 Leu/uL (Negative); Nitrite Negative (Negative); Protein, Urine (Dipstick) 10 mg/dL (Neg-Trace); RBC/HPF 21-50 HPF (0-3); Specific Gravity, Urine 1.023 (1.002-1.036); Squamous Epithelial 0-3 HPF (0-3); WBC/HPF 21-50 HPF (0-3); pH, Urine 7.5 (5.0-9.0)
[2024-04-16 01:05] LABS: Bacteria/HPF Rare-Few HPF (None Seen)
[2024-04-16 01:06] LABS: Urine Culture Reflex Yes Yes
[2024-04-16 01:23] VITALS: BMI 19.0
[2024-04-16] MEDS: Vancomycin HCl 500 MG in Sodium Chloride 0.9% 100 ML IVPB SCH (02:11)
[2024-04-16] MEDS: Dextrose 5 %-0.45 % NaCl 1,000 ML IV SCH (03:59)
[2024-04-16 05:18] LABS: #Basophils 0.03 10x3/uL (0.0-0.2); %Basophils 0.3 % (0.0-1.0); %Eosinophils 2.3 % (0.0-10.0); %Lymphocytes 10.5 % (21.0-51.0); %Monocytes 7.6 % (0.0-10.0); %Neutrophils 78.9 % (42.0-75.0); Hematocrit 38.8 % (42.0-52.0); Hemoglobin 12.2 g/dL (14.0-18.0); Mean Corpuscular HGB CONC 31.4 g/dL (32.0-36.0); Mean Corpuscular Hemoglobin 29.1 pg (27.0-31.0); Mean Corpuscular Volume 92.6 fL (78.0-98.0); Mean Platelet Volume 10.4 fL (7.4-10.4); Platelet Count 206 10x3/uL (130-400); RBC Distribution Width 15.4 % (11.5-14.5); Red Blood Cell (RBC) Count 4.19 mill/uL (4.70-6.10)
[2024-04-16 06:14] LABS: Anion Gap 10 mmol/L (10-20); BUN (Urea Nitrogen) 22 mg/dL (8.4-25.7); Calc. Creatinine Clearance 56 mL/min (70-130); Calcium 8.4 mg/dL (7.8-10.44); Carbon Dioxide 24 mmol/L (23-31); Chloride 116 mmol/L (98-107); Estimated GFR 77; Glucose 119 mg/dL (83-110); Potassium 3.6 mmol/L (3.5-5.1); Sodium 146 mmol/L (136-145)
[2024-04-16] MEDS ORDERED: Vancomycin 1 GM in Premix 1 BAG IVPB SCH (09:00)
[2024-04-16 10:02] VITALS: BMI 19.0
[2024-04-16] MEDS: Cefepime 1 GM in Sodium Chloride 0.9% 100 ML IVPB SCH (10:06)
[2024-04-16] MEDS: Vancomycin (BATCH) 1.25 GM in Premix 1 BAG IVPB SCH (11:55)
[2024-04-16] MEDS: Acetaminophen 325 MG TAB PO PRN (21:53)
[2024-04-16] MEDS ORDERED: Vancomycin (BATCH) 1.25 GM in Premix 1 BAG IVPB SCH (23:59)
[2024-04-17] MEDS ORDERED: PROPOFOL 20 ML ONE (11:08)
[2024-04-17] MEDS ORDERED: Lidocaine 1% PF 5 ML VIAL ONE (11:08)
[2024-04-17] MEDS: Ondansetron PF 4 MG/2 ML Vial IVP PRN (15:22)
[2024-04-18 05:47] LABS: #Basophils Less than 0.03 10x3/uL (0.0-0.2); %Basophils 0.2 % (0.0-1.0); %Eosinophils 4.6 % (0.0-10.0); %Lymphocytes 13.9 % (21.0-51.0); %Monocytes 9.5 % (0.0-10.0); %Neutrophils 71.4 % (42.0-75.0); Hematocrit 35.1 % (42.0-52.0); Hemoglobin 11.2 g/dL (14.0-18.0); Mean Corpuscular HGB CONC 31.9 g/dL (32.0-36.0); Mean Corpuscular Volume 90.9 fL (78.0-98.0); Mean Platelet Volume 10.1 fL (7.4-10.4); Platelet Count 189 10x3/uL (130-400); RBC Distribution Width 14.6 % (11.5-14.5); Red Blood Cell (RBC) Count 3.86 mill/uL (4.70-6.10)
[2024-04-18 06:04] LABS: Vancomycin, Random 12.9 ug/mL (See Comment)
[2024-04-18 06:08] LABS: Anion Gap 10 mmol/L (10-20); BUN (Urea Nitrogen) 9 mg/dL (8.4-25.7); Calc. Creatinine Clearance 72 mL/min (70-130); Calcium 8.3 mg/dL (7.8-10.44); Carbon Dioxide 22 mmol/L (23-31); Chloride 109 mmol/L (98-107); Estimated GFR 92; Glucose 101 mg/dL (83-110); Potassium 3.4 mmol/L (3.5-5.1); Sodium 138 mmol/L (136-145)
[2024-04-18] MEDS ORDERED: Vancomycin HCl 750 MG in Sodium Chloride 0.9% 250 ML 250 ML IVPB SCH (12:00)
[2024-04-19] MEDS: Escitalopram Oxalate 10 mg Tablet PO SCH (02:00)
[2024-04-19] MEDS: Levothyroxine Sodium 50 MCG TAB PO SCH (05:46)
[2024-04-19] MEDS ORDERED: VITAMIN C PO SCH (09:00)
[2024-04-19] MEDS ORDERED: Cefepime 2 GM in Sodium Chloride 0.9% 100 ML IVPB SCH (09:00)
[2024-04-19] MEDS ORDERED: [UNRECOGNIZED DRUG - OTHER] PO SCH (09:00)
[2024-04-19] MEDS: Fish Oil 1,000 MG CAP PO SCH (09:52)
[2024-04-19] MEDS: Saccharomyces boulardii 250 MG CAP PO SCH (09:52)
[2024-04-19] MEDS: Atorvastatin Calcium 40 MG TAB PO SCH (09:52)
[2024-04-19] MEDS: Aspirin 325 MG TAB PO SCH (09:52)
[2024-04-19] MEDS: DULoxetine 20 MG CAP PO SCH (09:52)
[2024-04-19] MEDS: Docusate 100 MG CAP PER TUBE SCH (09:53)
[2024-04-19] MEDS: Trospium 20 MG TAB PO SCH (09:53)
[2024-04-19] MEDS: Amoxicillin/Potassium Clav 600 mg/5 ml Oral Suspension PO SCH (16:45)
[2024-04-19 19:01] LABS: Anion Gap 10 mmol/L (10-20); BUN (Urea Nitrogen) 10 mg/dL (8.4-25.7); Calc. Creatinine Clearance 79 mL/min (70-130); Calcium 8.1 mg/dL (7.8-10.44); Carbon Dioxide 25 mmol/L (23-31); Chloride 107 mmol/L (98-107); Estimated GFR 95; Glucose 137 mg/dL (83-110); Potassium 3.6 mmol/L (3.5-5.1); Sodium 138 mmol/L (136-145)
[2024-04-20 07:00] LABS: #Basophils 0.04 10x3/uL (0.0-0.2); %Basophils 0.5 % (0.0-1.0); %Eosinophils 6.4 % (0.0-10.0); %Lymphocytes 13.9 % (21.0-51.0); %Monocytes 11.8 % (0.0-10.0); %Neutrophils 66.9 % (42.0-75.0); Hematocrit 36.3 % (42.0-52.0); Hemoglobin 11.8 g/dL (14.0-18.0); Mean Corpuscular HGB CONC 32.5 g/dL (32.0-36.0); Mean Corpuscular Hemoglobin 30.2 pg (27.0-31.0); Mean Corpuscular Volume 92.8 fL (78.0-98.0); Mean Platelet Volume 10.7 fL (7.4-10.4); Platelet Count 215 10x3/uL (130-400); RBC Distribution Width 14.6 % (11.5-14.5); Red Blood Cell (RBC) Count 3.91 mill/uL (4.70-6.10)
[2024-04-20 07:24] LABS: Anion Gap 10 mmol/L (10-20); BUN (Urea Nitrogen) 10 mg/dL (8.4-25.7); Calc. Creatinine Clearance 76 mL/min (70-130); Calcium 8.4 mg/dL (7.8-10.44); Carbon Dioxide 26 mmol/L (23-31); Chloride 107 mmol/L (98-107); Estimated GFR 94; Glucose 97 mg/dL (83-110); Potassium 3.8 mmol/L (3.5-5.1); Sodium 139 mmol/L (136-145)
[2024-04-22 15:56] VITALS: BP 106/70; TEMP 97.9
== END 2024-04-22 17:51 | DRG 871 ==
LOC: ERS 20:51 → 2NO 04-16 → SJJU 04-16 18:56
PROVIDERS: ADMIT Internal Medicine; ATTEND Internal Medicine
PROC: 0DH63UZ Insertion of Feeding Device into Stomach, Percutaneous Approach (ICD-10-PCS; principal; 2024-04-17)
DX: A41.9 Sepsis, unspecified organism (principal); J18.9 Pneumonia, unspecified organism; J69.0 Pneumonitis due to inhalation of food and vomit; I69.954 Hemiplegia and hemiparesis following unspecified cerebrovascular disease affecting left non-dominant side; A00-B99 Certain infectious and parasitic diseases; E87.0 Hyperosmolality and hypernatremia; N39.0 Urinary tract infection, site not specified; Z59.00 Homelessness unspecified; Z66 Do not resuscitate; E86.0 Dehydration; R65.20 Severe sepsis without septic shock; E78.5 Hyperlipidemia, unspecified; N40.0 Benign prostatic hyperplasia without lower urinary tract symptoms; E03.9 Hypothyroidism, unspecified; Z79.899 Other long term (current) drug therapy; Z87.442 Personal history of urinary calculi; Z95.0 Presence of cardiac pacemaker; Z79.890 Hormone replacement therapy; Z79.82 Long term (current) use of aspirin; Z91.013 Allergy to seafood
CPT/HCPCS: 36415; 51701; 71045; 76770; 80048; 80053; 80202; 81001; 83605; 83880; 84484; 85025; 87040; 87081; 87086; 93005; 96361; 96365; 96367; 97139; B4087; J0692; J2405; J2704; J3370; J3370-JW; J3490; J7042

== ENCOUNTER 2024-05-21 19:38 | Emergency (ER) | payer BC, MEDICARE ==
[2024-05-21 23:26] LABS: Bacteria/HPF None Seen HPF (None Seen); Bilirubin Negative (Negative); Blood, Urine Negative (Negative); CAUTI Indications for Culture Acute Hematuria; Clarity Turbid (Clear); Glucose, Urine (Dipstick) Normal (Negative); Ketone, Urine Negative (Negative); Leukocyte 25 Leu/uL (Negative); Nitrite Negative (Negative); Protein, Urine (Dipstick) Negative (Neg-Trace); Specific Gravity, Urine 1.016 (1.002-1.036); Squamous Epithelial 0-3 HPF (0-3); Urobilinogen Normal mg/dL (Less than 2); pH, Urine 7.5 (5.0-9.0)
[2024-05-21 23:27] LABS: Urine Culture Reflex No No
[2024-05-21 23:38] LABS: #Basophils 0.03 10x3/uL (0.0-0.2); %Basophils 0.5 % (0.0-1.0); %Eosinophils 3.9 % (0.0-10.0); %Lymphocytes 16.8 % (21.0-51.0); %Monocytes 9.3 % (0.0-10.0); %Neutrophils 69.2 % (42.0-75.0); Hematocrit 38.9 % (42.0-52.0); Hemoglobin 12.4 g/dL (14.0-18.0); Mean Corpuscular HGB CONC 31.9 g/dL (32.0-36.0); Mean Corpuscular Hemoglobin 30.3 pg (27.0-31.0); Mean Corpuscular Volume 95.1 fL (78.0-98.0); Mean Platelet Volume 11.1 fL (7.4-10.4); Platelet Count 185 10x3/uL (130-400); RBC Distribution Width 14.7 % (11.5-14.5); Red Blood Cell (RBC) Count 4.09 mill/uL (4.70-6.10)
[2024-05-21 23:59] LABS: ALT (SGPT) 35 U/L (8-55); AST (SGOT) 31 U/L (5-34); Alkaline Phosphatase 113 U/L (40-110); Anion Gap 15 mmol/L (10-20); BUN (Urea Nitrogen) 21 mg/dL (8.4-25.7); Bilirubin, Total 0.5 mg/dL (0.2-1.2); Calc. Creatinine Clearance 0 mL/min (70-130); Carbon Dioxide 26 mmol/L (23-31); Chloride 101 mmol/L (98-107); Estimated GFR 92; Globulin 3.9 g/dL (2.4-3.5); Glucose 98 mg/dL (83-110); Potassium 3.7 mmol/L (3.5-5.1); Protein, Total 6.9 g/dL (5.8-8.1); Sodium 138 mmol/L (136-145)
== END 2024-05-22 02:48 | disposition home or self-care (01) ==
LOC: ERS 19:38
DX: R33.9 Retention of urine, unspecified (principal)
CPT/HCPCS: 36415; 51702; 80053; 81001; 85025; 87086; 93005

== ENCOUNTER 2024-06-17 22:52 | Emergency (ER) | payer MEDICARE, BC ==
[2024-06-17 23:14] LABS: #Basophils 0.05 10x3/uL (0.0-0.2); %Basophils 0.5 % (0.0-1.0); %Eosinophils 1.2 % (0.0-10.0); %Lymphocytes 10.4 % (21.0-51.0); %Monocytes 12.1 % (0.0-10.0); %Neutrophils 75.4 % (42.0-75.0); Hematocrit 38.2 % (42.0-52.0); Hemoglobin 12.1 g/dL (14.0-18.0); Mean Corpuscular HGB CONC 31.7 g/dL (32.0-36.0); Mean Corpuscular Hemoglobin 29.8 pg (27.0-31.0); Mean Corpuscular Volume 94.1 fL (78.0-98.0); Mean Platelet Volume 10.5 fL (7.4-10.4); Platelet Count 251 10x3/uL (130-400); RBC Distribution Width 13.8 % (11.5-14.5); Red Blood Cell (RBC) Count 4.06 mill/uL (4.70-6.10)
[2024-06-17] MEDS ORDERED: Lidocaine 2% 6 ML (Jelly) SYR ONE (23:24)
[2024-06-17 23:37] LABS: ALT (SGPT) 55 U/L (8-55); AST (SGOT) 54 U/L (5-34); Albumin 2.2 g/dL (3.4-4.8); Alkaline Phosphatase 90 U/L (40-110); Anion Gap 9 mmol/L (10-20); BUN (Urea Nitrogen) 29 mg/dL (8.4-25.7); Bilirubin, Total 0.3 mg/dL (0.2-1.2); Calc. Creatinine Clearance 0 mL/min (70-130); Calcium 8.4 mg/dL (7.8-10.44); Carbon Dioxide 28 mmol/L (23-31); Chloride 108 mmol/L (98-107); Estimated GFR 92; Globulin 4.2 g/dL (2.4-3.5); Glucose 159 mg/dL (83-110); Lipase 36 U/L (8-78); Potassium 4.1 mmol/L (3.5-5.1); Protein, Total 6.4 g/dL (5.8-8.1); Sodium 141 mmol/L (136-145)
[2024-06-17 23:41] LABS: Troponin I Less than 0.010 ng/mL (< 0.028)
[2024-06-17 23:55] LABS: Influenza A by NAA Not Detected (NotDetected); Influenza B by NAA Not Detected (NotDetected); SARS-CoV-2 NAA Rapid Test Not Detected (NotDetected)
[2024-06-17 23:59] LABS: Bacteria/HPF None Seen HPF (None Seen); Bilirubin Negative (Negative); Blood, Urine 3+ (Negative); CAUTI Indications for Culture Alt mental st,lethar; Clarity Turbid (Clear); Glucose, Urine (Dipstick) Normal (Negative); Ketone, Urine Negative (Negative); Leukocyte 500 Leu/uL (Negative); Nitrite Negative (Negative); Protein, Urine (Dipstick) 50 mg/dL (Neg-Trace); RBC/HPF Greater than 50 HPF (0-3); Specific Gravity, Urine 1.023 (1.002-1.036); Squamous Epithelial None Seen HPF (0-3); Urobilinogen 3 mg/dL (Less than 2); WBC/HPF Greater than 50 HPF (0-3); pH, Urine 6.5 (5.0-9.0)
[2024-06-18] LABS: Urine Culture Reflex Yes Yes
[2024-06-18] MEDS ORDERED: Sodium Chloride 0.9% 100 ML ONE (00:18)
[2024-06-18] MEDS ORDERED: cefTRIAXone (ROCEPHIN) 1 GM VIAL ONE (00:18)
[2024-06-18] MEDS ORDERED: Ipratropium/Albuterol 3 ML NEB ONE (00:20)
== END 2024-06-18 02:04 ==
LOC: ERS 22:52
DX: N39.0 Urinary tract infection, site not specified (principal); Z55.6 Problems related to health literacy; Z86.73 Personal history of transient ischemic attack (TIA), and cerebral infarction without residual deficits; Z79.82 Long term (current) use of aspirin
CPT/HCPCS: 0240U; 71275; 80053; 81001; 83605; 83690; 83735; 83880; 84484; 85025; 87040; 87086; 93005; 51702; 71045; 87077; 87186; 96365; J0696; J7620; Q9967